=== PATIENT | male | born 1955 | race Caucasian/White ===

== ENCOUNTER 2023-10-31 12:03 | Inpatient (IN) | payer OTHER, SELFPAY ==
[2023-10-31] VITALS (12 sets, daily range): BP systolic 90–119; BP diastolic 58–76; BMI 24.2; BMI 22.9
--- NOTE | 2023-10-31 10:26 | ED.GENMED ---
History of Present Illness
General
Chief Complaint: Change in Mental Status
Source: patient and other (friends)
Time Seen by Provider: 10/31/23 10:01
History of Present Illness
History of Present Illness:
68-year-old male with past medical history of hypothyroidism and asthma presenting to the emergency department for evaluation with friends who report that over the last few days patient seems to be increasingly confused, stumbling, slower speech
than normal and falling asleep randomly. Patient has been having issues with sleep and was reportedly prescribed temazepam and trazodone by primary care provider within the last 2 weeks which friends were concerned might be because of some of
patient's symptoms. Yesterday patient notes that he kept stumbling and was very confused, friends reporting that even this morning while in the waiting room patient was stating he was waving at a little girl but friends report he was looking at a
plant and also felt that he was trying to press motorized buttons on the wheelchair while he was being brought back into the ER room. Other than generalized weakness patient has no specific physical concerns at this time. He is unaware of any
fevers. Friends note that a couple nights ago they were at dinner with him and he fell asleep at the table which is very abnormal for him. No history of similar.
Past History
Past History
ED Past Medical History: Asthma, Hypothyroidism and Psychiatric
ED Past Surgical History: Tonsilectomy and Other
Social History
Tobacco: Non-smoker
Alcohol: None
Drug: None
Personal: Single
Living: alone
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
Review of Systems
Review of Systems
All Other Systems: ROS reviewed and negative except as documented in HPI and ROS
Phy Exam
Physical Exam
Physical Exam:
GENERAL: Alert , in no apparent distress, slow to respond to questions but does answer appropriately
EYE: clear conjunctiva b/l
HEAD: NCAT
ENT: o/p clr, mmm.
CARDIAC: Regular rate and rhythm, no murmur .
LUNGS: Clear breath sounds bilaterally, no acute respiratory distress, no wheezes/rales/rhonchi
ABDOMEN: Soft, without focal tenderness, no r/g, no cvat
NEUROLOGICAL: Alert and oriented
SKIN: Warm and dry, skin intact.
MUSCULOSKELETAL: well perfused.
PSYCH: Normal and appropriate interaction.
Scores
Heart Failure Risk
Heart Failure Risk Score: Not Applicable
Heart Score for Chest Pain Patients
STEMI patient?: Not applicable
Withdrawal Assessment of Alcohol
Withdrawal Assessment Completed?: Not applicable
Course
Orders/Labs/Results
Orders:
Orders
10/31/23 10:24
Urinalysis Reflex To Culture Urgent
10/31/23 10:25
Electrocardiogram (*1) Urgent
Reason for Study: Fatigue / Weakness
CT Head W/o Iv Contrast Urgent
Comment:
Reason For Exam: change in mental status, falling
EKG- Treatment ONCE
10/31/23 10:30
Complete Blood Count/With Diff Urgent
Comprehensive Metabolic Panel Urgent
Magnesium Urgent
Serum Osmolality Urgent
TSH Urgent
10/31/23 11:15
Urine Sodium Urgent
10/31/23 11:16
Add On- LAB Urgent
Tests Added?: serum osmo
10/31/23 11:46
Admit/Transfer Patient As Directed
Co-Sign Provider:
Level of Care: Inpatient admission
Assign to:: IMU- Intermediate Care
Physician / Group: Ambika Galarza
Diagnosis: Hyponatremia
Reason for Hospitalization: hyponatremia
Expected length of stay greater than two midnights?: Yes
ELOS- Estimated Length of Stay in days: 3
I certify the patient meets the requirements for IP care: Yes
10/31/23 11:53
Code Status As Directed
Resuscitation Status: Full Code
10/31/23 11:55
Ot Eval And Treat Routine
Pt Eval And Treat Routine
Activity Level: As Tolerated
10/31/23 12:00
3% Sodium Chloride 250 ml [Sodium Chloride 3%] 250 ml IV ONCE
10/31/23 Dinner
Regular
Fluid Restriction: 1440 mL/day (48 oz)
Abnormal Lab Results
10/31/23
10:30
RBC 3.95 L 10^6/uL
(4.70-6.10)
Hgb 12.6 L g/dL
(13.0-18.0)
Hct 33.6 L %
(39.0-52.0)
MCH 31.9 H pg
(27.0-31.0)
MCHC 37.5 H g/dL
(33.0-37.0)
Absolute Eos (auto) 1.2 H 10^3/uL
(0-0.7)
Neutrophils % 31.4 L %
(42.2-75.2)
Monocytes % 10.7 H %
(1.7-9.3)
Eosinophils % 21.6 H %
(0-6)
Sodium 116 L* mmol/L
(135-145)
Chloride 80 L mmol/L
(98-107)
Serum Osmolality 239 L mOsm/kg
(275-300)
AST 76 H U/L
(17-59)
Total Protein 6.2 L g/dl
(6.3-8.2)
10/31/23 10:30
10/31/23 10:30
Vital Signs
Initial and Last Documented VS:
Initial Vital Signs
Temp Pulse Resp BP Pulse Ox
97.9 F 84 18 116/76 96
10/31/23 09:18 10/31/23 09:18 10/31/23 09:18 10/31/23 09:18 10/31/23 09:18
Last Documented Vital Signs
Temp Pulse Resp BP Pulse Ox
97.9 F 74 22 106/65 98
10/31/23 09:18 10/31/23 12:15 10/31/23 12:15 10/31/23 12:00 10/31/23 11:45
MDM/Problems Addressed
Differential Diagnosis Includes:
Medication interaction, hypothyroidism, UTI, CVA thought to be less likely given lack of risk factors and no focal neurologic deficits
MDM/Problems Addressed:
68-year-old male presenting to the emergency department for evaluation of forgetfulness, unsteadiness, slow speech and confusion. Friends concerned about patient's current disposition and are reporting that he is very slow to respond, falling
asleep at abnormal times. Recently prescribed temazepam and trazodone which patient has been taking nightly. I suspect this to be the main cause of patient's symptoms given symptoms started shortly after initiating these medications. Patient
without any symptoms to suggest infectious etiology but will check a urinalysis. Patient with known history of hypothyroidism and this could certainly be a cause of patient's presenting symptoms. Will check labs, urine, head CT and reassess
following.
*Pulse Oximetry
Patient hypoxic: no
*Critical Care Note
Total Time (30-74mins, 75-104mins- exclusive of procedures): 30
comment:
Critical care statement: A total of 30 minutes of critical care time was provided for this patient. This includes management of unstable vital signs, evaluation of the patient at bedside, reviewing the patient's pertinent medical records, discussion
with consultants, review of old EKGs and review of pertinent medical records. This time with separate from time utilized to perform the aforementioned documented procedures
Data Reviewed
Review of Other/Old Records Reveals: Records
Patient Management
Discussion with other providers: Hospitalist and Consumer Services Consultant
Escalation/DeEscalation of care consider admission/obs:
Patients labs reveal a Na+ of 116. Urine sodium and serum osmolality added on to labs. Case was discussed with hospitalist who accepts for admission. Nephrology also notified who would like patient started on 3%NaCl at 25mL/hour with a 250mL bag. Q4
Na+ checks. Patient and friends updated on findings. Patient remains hemodynamically stable. No seizure like activity.
ED Attending Note
-
Portions of this chart may have been created with voice recognition software.� Occasional wrong word or��sound alike� substitutions may have occurred due to the inherent limitations of voice recognition software.
Discharge Plan
Departure
Patient Disposition: Admit
Date of Disposition: 10/31/23
Time of Disposition: 11:19
Presentation/result/management discussed w/ accepting MD/DO: Hospitalist
Discharge Problem:
Acute hyponatremia
Interventions
Interventions:
*Risk Screen - Suicide Last Done: 10/31/23 10:27
*General Assessment Last Done: 10/31/23 09:18
*Neglect/Abuse Screening Last Done: 10/31/23 10:27
ED- Fall Risk Assessment Last Done: 10/31/23 10:27
*ED COVID-19 Vaccine History Last Done: 10/31/23 10:27
ED- Neurological Assessment Last Done: 10/31/23 10:27
ED- Cardiac Assessment Last Done: 10/31/23 10:27
[2023-10-31 10:59] LABS: % Basophils 0.4 % (0-2); % Eosinophils 21.6 % (0-6); % Immature Granulocytes 0.2 % (0-0.5); % Lymphocytes 35.7 % (20.5-51.1); % Monocytes 10.7 % (1.7-9.3); % Neutrophils 31.4 % (42.2-75.2); Absolute Eosinophils 1.2 10^3/uL (0-0.7); Absolute Lymphocytes 1.9 10^3/uL (1.2-3.4); Absolute Monocytes 0.6 10^3/uL (0.1-0.6); Absolute Neutrophils 1.7 10^3/uL (1.4-6.5); Hematocrit 33.6 % (39.0-52.0); Hemoglobin 12.6 g/dL (13.0-18.0); Mean Corp Hgb Conc. 37.5 g/dL (33.0-37.0); Mean Corpuscular Hgb 31.9 pg (27.0-31.0); Mean Corpuscular Volume 85.1 fL (80.0-94.0); Mean Platelet Volume 9.2 fL (7.4-10.4); Nucleated Red Blood Cells % 0 % (-); Platelet Count 253 10^3/uL (130-400); Red Blood Cell Count 3.95 10^6/uL (4.70-6.10); Red Cell Dist. Width 12.4 % (11.5-14.5); White Blood Cell Count 5.3 10^3/uL (4.8-10.8)
[2023-10-31 11:15] LABS: ALT (SGPT) 44 U/L (0-50); AST (SGOT) 76 U/L (17-59); Alkaline Phosphatase 56 U/L (38-126); Blood Urea Nitrogen 11 mg/dl (9-20); Calcium 8.7 mg/dl (8.4-10.2); Carbon Dioxide 25 mmol/L (22-30); Chloride 80 mmol/L (98-107); Estimated Creatinine Clearance 78 ml/min; Glucose 88 mg/dl (70-99); Magnesium 1.8 mg/dl (1.6-2.3); Potassium 4.7 mmol/L (3.5-5.1); Sodium 116 mmol/L (135-145); Total Bilirubin 0.6 mg/dl (0.2-1.3); Total Protein 6.2 g/dl (6.3-8.2); eGFR > 60.00
--- NOTE | 2023-10-31 11:25 | HPS.HSE ---
Addendum entered and electronically signed by Ambika Galarza MD 10/31/23 12:21:
HPI: 68-year-old male with past medical history of hypothyroidism, asthma; p/w lethargy, weakness and confusion.
A/P:
# Acute metabolic encephalopathy/symptomatic hyponatremia, unclear acute vs acute on chronic
Euvolemic likely SIADH (may be drug induced, ?does this patient have recent CAP/lung involvement given he is on Augmentin and steroid taper)
Check CXR
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
follow urine studies
Follow TSH, check random cortisol level
Nephrology consult.
Ok for diet (if awake enough, Fluid restriction to [address] head ordered in ED, follow up report
# ?recent CAP
noted Augmentin and steroid taper from prior to admission
check CXR
Hold both Abx and steroid, no clinical evidence of CAP currently
# Hypothyroidism
Follow TSH,
Continue home medication
# Asthma
Continue home medication as needed
# insomnia
was recently started with trazodone, hold
Hold temazepam with current confusion
monitor MS
DVT�sequential compression devices
Full code
Original Note:
Family Physician
-
Family Physician: MICHAEL Paiz
Chief Complaint
-
Fatigue
History of Present Illness
Patient is a 68-year-old male with past medical history of hypothyroidism, asthma who has been significantly fatigued, confused and clumsy in the last 2 days. He states that he has been tripping over items at home, thought his father and sister
were with him last night when they were not and is forgetting where items are. His friends state that he has been falling asleep in conversation, which is unlike him. He reports no headaches, nausea, vomiting, chest pain, shortness of breath,
abdominal pain or numbness and tingling. He does state he has dizziness and fatigue.
Medical History
Past Medical History
Past Medical History: Reports Asthma, Hypercholesterolemia, Hypothyroidism and Psychiatric
Additional Past Medical History:
obesity, prediabetes, tinnitus, cataracts
Past Surgical History: Reports Other (hernia)
Social History
Tobacco: Non-smoker
Alcohol: None
Drug: None
Personal: Single
Living: Alone
Employment: Employed
Family History
Family History: Cancer
Allergies / Home Medications
Allergies reflects when Allergies were last updated in [facility].
Home Medications with original date entered in [facility]
Allergy/Medication List:
Iodine, polyethylene glycol, polysorbate 80, shellfish, tetanus vaccine/toxoid
Review of Systems
-
History Source: Patient
A 12 point ROS was completed and negative except as noted: Yes
Constitutional: Reports Fatigue and Sleep Disturbance
EENT: Reports No Symptoms
Respiratory: Reports No Symptoms
Cardiac: Reports No Symptoms
Abdomen/GI: Reports No Symptoms
: Reports No Symptoms
Musculoskeletal: Reports No Symptoms
Skin: Reports No Symptoms
Neurological: Reports Dizzy and Weakness
Hematologic/Lymphatic: Reports No Symptoms
Psych: Reports No Symptoms
Physical Exam
Vital Signs
Vital Signs
Temp Pulse Resp BP Pulse Ox
97.9 F 74 12 105/65 100
10/31/23 09:18 10/31/23 10:45 10/31/23 10:45 10/31/23 10:27 10/31/23 10:31
Physical Exam
General: Well Developed, No Apparent Distress, Comfortable, Conversant and Other (Somnolent)
HEENT: NormoCephalic and Anicteric
Respiratory: Clear
Cardiac: S1/S2 and Regular Rhythm
GI: Soft, Non Tender and Non Distended
Musculoskeletal: No Clubbing, No Cyanosis and No Edema
Skin: Warm and Dry
Psych: Calm and Other (Somnolent)
Laboratory Results
-
10/31/23 10:30
10/31/23 10:30
Laboratory Results
Total Bilirubin 0.6 mg/dl (0.2-1.3) 10/31/23 10:30
AST 76 U/L (17-59) H 10/31/23 10:30
ALT 44 U/L (0-50) 10/31/23 10:30
Alkaline Phosphatase 56 U/L (38-126) 10/31/23 10:30
Data Reviewed
-
Lab Data: Labs Reviewed by me and Discussed with Physician
Old Records: Reviewed
Impression/Plan
-
IMPRESSION: Patient is a 68-year-old male with past medical history of hypothyroidism and asthma presenting to [facility] with confusion, fatigue and hyponatremia.
PLAN:
Hyponatremia
-Likely secondary to antidepressant/antipsychotic medication
�UA pending. Nighat, UOsm, UCr pending
-TSH pending. Random cortisol pending.
� Nephrology consulted. Input appreciated
� Fluid restriction to 1400 mL. Regular diet.
Hypothyroidism
�Continue home medication
Asthma
-Continue home medication as needed
Psychiatric history-sleeplessness
� Hold temazepam and trazodone in the setting of hyponatremia
� Continue to monitor
DVT�sequential compression devices
Full code
[2023-10-31] MEDS: SODIUM CHLORIDE 3% 250 IV (11:40)
[2023-10-31 11:57] LABS: Osmolality Serum 239 mOsm/kg (275-300)
--- NOTE | 2023-10-31 12:36 | W.CON.NEPH ---
Consultation
-
Date/Time Consultation Requested: 10/31/23 1118
Date/Time Consultation Performed: 10/31/23 1200
Requesting Provider: Geovanni Coyne
Performing Provider: Ritu Pimentel
Reason for Consultation: Hyponatremia
Medical History
-
Chief Complaint: falls, weakness and lethargy
History of Present Illness:
68-year-old male with past medical history of hypothyroidism on Levothyroxine, asthma with out flare ups who was asked to come to ER by his friends for Gen weakness, falls, confusion and lethargic, reportedly symptoms present for 1week and worse in
last 2days. He reports of eating well and drinking liquids. No ETOH use. He was given Temazepam and Trazodone for insomnia by his PCP 2weeks ago. He reports taking NSAIDs occasionally, noted Meloxicam on med list too for his intermittent HAs. No
n/v. No CP or SOB. Denies dizziness but c/o of falls. NOtes his med list shows Augmentin and prednisone. Pt can only provide limited history due to letharginess. CT head is normal.
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 In Er labs noted sodium at 116, he denies prior h/o hyponatremia.
Past Medical History
Hypothyroidism
Asthma
Insomnia
Pre DM
HLD
Tinnitus
cataracts
Past Surgical History: Other (hernia)
Social History
Tobacco: Non-Smoker
Alcohol: None
Drug: None
Personal: Single
Living: Alone
Family History
Family History: Not Pertinent
Allergies / Home Medications
Allergy/AdvReac Type Severity Reaction Status Date / Time
Iodinated Contrast Media Allergy swelling;hi Verified 10/31/23 09:25
ves
polyethylene glycol Allergy swelling;bad Verified 10/31/23 09:25
rash
polysorbate 80 Allergy swelling;bad Verified 10/31/23 09:25
rash
shellfish derived Allergy swelling;bad Verified 10/31/23 09:25
rash
Tetanus Vaccines and Toxoid Allergy swelling;bad Verified 10/31/23 09:25
rash
�Medication �Instructions �Recorded �Confirmed �Type
albuterol sulfate 90 mcg/actuation 2 puff inhalation R Q6HPRN PRN 03/21/22 10/31/23 History
aerosol inhaler (Ventolin HFA) asthma
amoxicillin 875 mg-potassium 1 tab PO BID 10/31/23 10/31/23 History
clavulanate 125 mg tablet
levothyroxine 100 mcg tablet 100 mcg PO DAILY 10/31/23 10/31/23 History
(Synthroid)
meloxicam 15 mg tablet 15 mg PO DAILYPRN PRN mild pain 10/31/23 10/31/23 History
prednisone 10 mg tablets in a dose 0 mg PO PER PKG DIR 10/31/23 10/31/23 History
pack
temazepam 15 mg capsule 15 mg PO HS 10/31/23 10/31/23 History
therapeutic multivitamin 1 tab PO DAILY 10/31/23 10/31/23 History
trazodone 100 mg tablet 100 mg PO HSPRN PRN sleep 10/31/23 10/31/23 History
Review of Systems
-
All other systems: Negative unless noted
Physical Exam
Vital Signs
Vital Signs
Temp Pulse Resp BP Pulse Ox
97.9 F 74 22 106/65 98
10/31/23 09:18 10/31/23 12:15 10/31/23 12:15 10/31/23 12:00 10/31/23 11:45
Lab Results
WBC 5.3 10^3/uL (4.8-10.8) 10/31/23 10:30
RBC 3.95 10^6/uL (4.70-6.10) L 10/31/23 10:30
Hgb 12.6 g/dL (13.0-18.0) L 10/31/23 10:30
Hct 33.6 % (39.0-52.0) L 10/31/23 10:30
Plt Count 253 10^3/uL (130-400) 10/31/23 10:30
Sodium 116 mmol/L (135-145) L* 10/31/23 10:30
Potassium 4.7 mmol/L (3.5-5.1) 10/31/23 10:30
Chloride 80 mmol/L (98-107) L 10/31/23 10:30
Carbon Dioxide 25 mmol/L (22-30) 10/31/23 10:30
BUN 11 mg/dl (9-20) 10/31/23 10:30
Creatinine 0.8 mg/dL (0.7-1.3) 10/31/23 10:30
eGFR > 60.00 10/31/23 10:30
Glucose 88 mg/dl (70-99) 10/31/23 10:30
Calcium 8.7 mg/dl (8.4-10.2) 10/31/23 10:30
Albumin 4.0 g/dl (3.5-5.0) 10/31/23 10:30
Physical Exam
General: Awake, Oriented, AOx3 and No Distress
HEENT: EOMI, Anicteric, Conjunctivae Clear, Neck Supple and No JVD
Respiratory: Clear, Normal Excursion and Nonlabored Respirations
Cardiac: S1/S2 and Regular Rate/Rhythm
Breast: Deferred by me
Abdomen: Soft, Nontender and Nondistended
Musculoskeletal: No Cyanosis and No Edema
Skin: No Rash and Normal Turgor
Neuro: Nonfocal/Grossly Intact and Other (sleeps during conversation )
Psych: Appropriate
Data Reviewed
-
Labs: Labs Reviewed by me and Discussed with Patient
Assessment/Plan
-
IMP:
Acute metabolic encephalopathy
possible symptomatic hyponatremia
?recent CAP
Hypothyroidism
Asthma
Insomnia
Anemia
Eosinophilia
PLan:
A/w fall, gen weakness and lethargy
likely symptomatic hyponatremia na at 116
no previous h/o hyponatremia per pt
check U oosmo, u na
suspect high ADH state ?lung process+NSAIDs use
check TSH and cortisol(note pt was on prednisone)
agree check CXR, specially noted significant eosinophilia
goal of correction 6-8meq/day , sodium 122 by am
3% started at 25cc/hr, check q4h sodium
avoid NSAIDs
BP soft , monitor for now
anemia-check U PCR, fe panel
d/w pt
[2023-10-31 14:18] LABS: Urine Albumin Negative (Neg - Trace); Urine Bilirubin Negative (Negative); Urine Character Clear (Clear); Urine Color Yellow; Urine Glucose Negative (Negative); Urine Ketone 2+ (Negative); Urine Leukocyte Negative (Negative); Urine Nitrite Negative (Negative); Urine Occult Blood Negative (Negative); Urine Urobilinogen Negative (Neg - 1+); Urine pH 6.5 (5.0-9.0)
[2023-10-31 14:40] LABS: Sodium 115 mmol/L (135-145)
[2023-10-31 14:55] LABS: Osmolality Urine 319 mOsm/kg (300-900)
[2023-10-31 15:08] LABS: Urine Protein 12 mg/dl (0-12); Urine Sodium 31 mmol/L (30-90)
[2023-10-31 15:30] LABS: Cortisol, Random 3.3 ug/dl
--- NOTE | 2023-10-31 15:56 | PTCARENOTE ---
Rec'd pt from ED. Pt is intermittently confused, very talkative but requires frequent reminders about his condition etc. Medsitter in place due to fall risk. BP low 100s systolic. Pt unable to void on arrival to IMU. Bladder scan 800ml. st. cath per
order. Labs and urine sent. Dr. Ely updated on critcal Na 115. 2 hour after straight cath pt felt urge to void. he voided 350ml very clear urine. RN updated Dr. Parks. Brother at bedside. Pt is eating dinner. Bed alarm in place
[2023-10-31 16:46] LABS: TSH 9.65 uIU/ml (0.47-4.68)
--- NOTE | 2023-10-31 18:15 | PTCARENOTE ---
mentation improving, with some periodic confusion
[2023-10-31 18:30] LABS: Sodium 119 mmol/L (135-145)
--- NOTE | 2023-10-31 18:35 | PTCARENOTE ---
PT O2 sat dipped to 81% while asleep. placed on 2L NC. Brother describes pt as frequently falling asleep, possibly having narcolepsy.
--- NOTE | 2023-10-31 19:21 | PTCARENOTE ---
Recd TT from Dr Ely to turn off 3% NS if pt's Na reaches 120 or higher with next lab draw
[2023-10-31 22:20] LABS: Sodium 122 mmol/L (135-145)
[2023-10-31] MEDS: D5W 1000 IV (23:15)
--- NOTE | 2023-10-31 23:15 | W.PN.UPDATE ---
Update Note
Progress Note Update
Recommended by rib knitter gas station clerk to start D5% 50ml/hr, and recheck sodium in 2 hrs. Goal of sodium level to be 120-121.
Sodium level trended up from 122-125 will increase D5% rate to 100ml/hr as recommended and will recheck sodium level this am.
[2023-11-01] VITALS (17 sets, daily range): BP systolic 89–126; BP diastolic 55–105; BMI 22.3
[2023-11-01 02:25] LABS: Sodium 125 mmol/L (135-145)
--- NOTE | 2023-11-01 03:03 | PTCARENOTE ---
Pt is oriented, but forgetful. Pt frequently inquires about his condition and what led to his hospital stay. Na increased to 125 at most recent. This RN increased rate of D5W from 50 to 100ml/hr per CHIEF LEGAL OFFICER orders. Pt continues with frequent urination
and urgency. I&O closely monitored and documented. Call thomas within reach.
[2023-11-01] MEDS: SYNTHROID 100 MCG PO (06:15)
[2023-11-01 06:46] LABS: ALT (SGPT) 47 U/L (0-50); AST (SGOT) 74 U/L (17-59); Albumin 3.6 g/dl (3.5-5.0); Alkaline Phosphatase 52 U/L (38-126); Blood Urea Nitrogen 7 mg/dl (9-20); Calcium 8.7 mg/dl (8.4-10.2); Carbon Dioxide 23 mmol/L (22-30); Chloride 92 mmol/L (98-107); Estimated Creatinine Clearance 106 ml/min; Glucose 114 mg/dl (70-99); Iron 67 ug/dl (49-181); Potassium 4.6 mmol/L (3.5-5.1); Sodium 123 mmol/L (135-145); Total Bilirubin 0.6 mg/dl (0.2-1.3); Total Protein 5.8 g/dl (6.3-8.2); eGFR > 60.00
[2023-11-01 06:55] LABS: Percent Saturation 23 % (20-50); Total Iron Binding Capacity 287 ug/dl (261-462)
[2023-11-01 07:26] LABS: Hematocrit 34.7 % (39.0-52.0); Mean Corp Hgb Conc. 37.5 g/dL (33.0-37.0); Mean Corpuscular Hgb 31.7 pg (27.0-31.0); Mean Corpuscular Volume 84.6 fL (80.0-94.0); Mean Platelet Volume 9.1 fL (7.4-10.4); Platelet Count 262 10^3/uL (130-400); Red Cell Dist. Width 12.8 % (11.5-14.5); White Blood Cell Count 3.9 10^3/uL (4.8-10.8)
--- NOTE | 2023-11-01 07:44 | W.PN.HOSP.TC ---
Addendum entered and electronically signed by Ambika Galarza MD 11/01/23 11:23:
HPI: 68-year-old male with past medical history of hypothyroidism, asthma; p/w lethargy, weakness and confusion.
A/P:
# Acute metabolic encephalopathy/symptomatic hyponatremia, unclear acute vs acute on chronic
Euvolemic 2/2 SIADH (may be drug induced)
Sodium level 116 on admission, s/p 3% NSS, now on D5W due to overcorrection
cont monitor sodium level Q4H for now
Nephrology on board
CXR noted possible left upper lobe nodule vs costochondral calcification, repeat CXR in 4 weeks with PCP
PCT negative hence r/o bacterial pneumonia
Stop ENVIRONMENTAL PROFESSIONAL trazodone (can cause SIADH) and NSAID (may exacerbate hyponatremia)
TSH 9.65, FT4 0.73, suggestive of hypothyroidism, for now cont ENVIRONMENTAL PROFESSIONAL Synthroid at 100 mcg and consider increasing dose when sodium level corrected
Random cortisol level low at 3, not a true reflection since pt may have been on prednisone ENVIRONMENTAL PROFESSIONAL, can consider repeat cortisol level outpt when off prednisone
Cont Fluid restriction to [address] head ordered in ED is WNL
# recent sinusitis on Augmentin and ?steroid taper
Per sister, pt has completed Abx course.
Hold further prednisone
# Hypothyroidism
TSH 9.65, FT4 0.73, suggestive of hypothyroidism, for now cont ENVIRONMENTAL PROFESSIONAL Synthroid at 100 mcg and consider increasing dose when sodium level corrected
# Asthma
Continue home medication as needed
# insomnia
Recently started trazodone, stop going forward
Stop ENVIRONMENTAL PROFESSIONAL temazepam
monitor MS, improved
DVT� sequential compression devices
Full code
DW sister on the phone
Original Note:
Today's Communication/Plan
-
.
Assessment / Plan
Assessment / Plan
IMPRESSION: Patient is a 68-year-old male with past medical history of hypothyroidism and asthma presenting to [facility] with confusion, fatigue and hyponatremia.
PLAN:
Acute metabolic encephalopathy/symptomatic hyponatremia, unclear acute vs acute on chronic
- Euvolemic, secondary to SIADH
-Likely secondary to antidepressant/antipsychotic medication
�UA negative. Nighat 31, UOsm 319, UCr 76
-TSH 9.65. Random cortisol 3.3 and 2.6 this AM. Continue to monitor
� Nephrology consulted. Input appreciated. Pt given 3% Na in ED.
� Fluid restriction to 1400 mL. Regular diet.
- Na at 123 10/31 AM, D5 at 150 ml/hr
Hypothyroidism
�Continue home medication
- TSH 9.65 at time of admission
- Can reassess and increase Synthroid to 125 mg once Na corrected
Potential CAP(?)
- unclear based on poor historian/ drug list
- CXR report below from 10/30
- procalcitonin ordered. Pending results
Urinary Retention
- patient retaining 542 mL per bladder scan
- attempt to void with standing, otherwise nurse will straight cath
- continue to monitor
Low Neutrophil Count
- patient's ANC at 0.9 on 10/31
- continue to monitor
Asthma
-Continue home medication as needed
- Patient saturating 98% on RA, O2 stopped
Psychiatric history-sleeplessness
� Hold temazepam and trazodone in the setting of hyponatremia
� Continue to monitor
DVT�sequential compression devices
Full code
----
CT HEAD 10/30:
IMPRESSION: Normal
CXR 10/30:
IMPRESSION:
Left upper lobe nodular opacity may represent pneumonia in the proper clinical context versus underlying pulmonary nodule. If there is no concern for an infectious/inflammatory process, CT of the chest may be performed on an outpatient basis for
further evaluation.
Anticipated Discharge: > 48 hours
Subjective/Interval History
-
Date of Service: November 01, 2023
Patient reports feeling well today. He states he slept through the night well. No new headaches, nausea, vomiting, diarrhea, chest pain, shortness of breath or numbness and tingling in extremities. He states he is no longer hallucinating.
Objective Data
-
Labs:
Laboratory Results
10/31/23 11/01/23 11/01/23
21:57 01:58 06:09
WBC 3.9 L
Hgb 13.0
Hct 34.7 L
Plt Count 262
Sodium 122 L 125 L 123 L
Potassium 4.6
Chloride 92 L
Carbon Dioxide 23
BUN 7 L
Creatinine 0.6 L
Glucose 114 H
Calcium 8.7
Total Bilirubin 0.6
AST 74 H
ALT 47
Alkaline Phosphatase 52
11/01/23
09:30
WBC
Hgb
Hct
Plt Count
Sodium Pending
Potassium
Chloride
Carbon Dioxide
BUN
Creatinine
Glucose
Calcium
Total Bilirubin
AST
ALT
Alkaline Phosphatase
Vital Signs:
Vital Signs
Temp Pulse Resp BP Pulse Ox
97.5 F 74 16 101/62 98
11/01/23 03:44 11/01/23 06:09 11/01/23 06:09 11/01/23 06:09 11/01/23 06:09
I&O
10/31/23 11/01/23 11/02/23
06:59 06:59 06:59
Intake Total 120 / 120
Output Total 3300 / 3300
Balance -3180 / -3180
Review of Systems
-
History Source: Patient
All other systems: Reviewed and negative
Constitutional: Reports Fatigue
Physical Exam
-
General: Well Developed, Well Nourished and No Apparent Distress
HEENT: Normocephalic and Atraumatic
Respiratory: Clear to Auscultation and Non Labored Respirations
GI: Soft, Nontender and Nondistended
Musculoskeletal: No Clubbing, No Cyanosis and No Edema
Skin: Warm and Dry
Neuro: AO x 3
Psych: Calm
Data Reviewed
-
Diagnostic Radiology: Report Reviewed by me and Discussed with Physician
Labs: Labs Reviewed by me and Discussed with Physician
Old Records: Reviewed
[2023-11-01 08:19] LABS: % Eosinophils 25.2 % (0-6); % Immature Granulocytes 0.3 % (0-0.5); % Monocytes 8.4 % (1.7-9.3); % Neutrophils 23.1 % (42.2-75.2); Absolute Lymphocytes 1.7 10^3/uL (1.2-3.4); Absolute Monocytes 0.3 10^3/uL (0.1-0.6); Absolute Neutrophils 0.9 10^3/uL (1.4-6.5); Nucleated Red Blood Cells % 0 % (-)
[2023-11-01 08:48] LABS: Free T4 0.73 ng/dl (0.78-2.19)
[2023-11-01 09:02] LABS: Cortisol, Random 2.6 ug/dl
[2023-11-01] MEDS: D5W 1000 IV (09:34)
[2023-11-01 10:19] LABS: Osmolality Urine 213 mOsm/kg (300-900)
[2023-11-01 10:44] LABS: Sodium 125 mmol/L (135-145)
[2023-11-01 10:47] LABS: Blood Urea Nitrogen 6 mg/dl (9-20); Calcium 9.1 mg/dl (8.4-10.2); Carbon Dioxide 25 mmol/L (22-30); Chloride 90 mmol/L (98-107); Estimated Creatinine Clearance 91 ml/min; Glucose 105 mg/dl (70-99); Potassium 5.4 mmol/L (3.5-5.1); Sodium 125 mmol/L (135-145); eGFR > 60.00
[2023-11-01 11:02] LABS: Procalcitonin 0.05 ng/ml (0.0-0.25)
--- NOTE | 2023-11-01 11:50 | CM ---
Patient seen at bedside working with therapy. PT/OT recommending SNF placement due to confusion and need for Min a assistance at this time. Patient son also present and he indicated that Patient has been living alone for the last 40 years. Patient
son lives in [place] and the daughter is in [place]. Patient son expressed intrest in SNF in [place]. CM reviewed Medicare.gov and PAC data. Patient son indicated that he wanted to talk to his father and sister about options. Patient PCP Dr. Lion and he uses
the [facility] in [place] for pharmacy needs. Patient son concurred that he understood current recommendations from therapy were 01/10 supervision with VN vs SNF at this time. Patient son indicated that he would communicate with CM with plan once he
discussed options with sister and father. CM will continue to follow for discharge planning needs.
Plan; SNF vs home with VN/01/10 care.
[2023-11-01 15:31] LABS: Sodium 124 mmol/L (135-145)
--- NOTE | 2023-11-01 16:13 | W.PN.NEPH.PH ---
Today's Communication / Plan
-
- f/u sodium trend
- off D5W
Assessment/Plan
-
IMP:
Acute metabolic encephalopathy
possible symptomatic hyponatremia
?recent CAP
Hypothyroidism
Asthma
Insomnia
Anemia
Eosinophilia
PLan:
A/w fall, gen weakness and lethargy
likely symptomatic hyponatremia na at 116
no previous h/o hyponatremia per pt
urine osm and urine Na --> indicative of hypovolemic hypoantremia + excessive ADH state
rapid correction with 3%. initiated on D5W by Dr. Parks overnight as patient was correcting too quickly. he has stabilized at 124 now. will stop D5W now as he corrected 8 pts
hold off on further fluids and monitor his response
cortisol is low but likely in the setting of prednisone usage
TSH elevated and T4 low --> okay to uptitrate levothyroxine
could consider pulm c/s for eosinophilia + CXR findings --> ABPA? pulm eosinophilia? could also explain some of hyponatremia and excess ADH
avoid NSAIDs
BP soft , monitor for now
anemia-UPCR wnl, check fe panel
d/w pt
-
-
Date of Service: November 01, 2023
CC / HPI / ROS
-
Chief Complaint:
hyponatremia
History of Present Illness:
Na 116 --> 124 over >24 hours
hold further fluids
Review of Systems:
appears slightly confused
no complaints
Labs
-
Labs:
WBC 3.9 10^3/uL (4.8-10.8) L 11/01/23 06:09
RBC 4.10 10^6/uL (4.70-6.10) L 11/01/23 06:09
Hgb 13.0 g/dL (13.0-18.0) 11/01/23 06:09
Hct 34.7 % (39.0-52.0) L 11/01/23 06:09
Plt Count 262 10^3/uL (130-400) 11/01/23 06:09
eGFR > 60.00 11/01/23 10:18
Albumin 3.6 g/dl (3.5-5.0) 11/01/23 06:09
Physical Exam
-
Vital Signs:
Vital Signs
Temp Pulse Resp BP Pulse Ox
97.8 F 85 15 104/60 98
11/01/23 15:16 11/01/23 12:46 11/01/23 12:46 11/01/23 12:46 11/01/23 14:03
Cardiovascular:: Regular rate and rhythm
Respiratory:: Bilateral: Coarse
Lung Excursion:: Normal
Abdomen:: Nontender and Soft
Bowel Sounds:: Normal
Extremity Edema:: None: Bilateral:
Lau Catheter: No
[2023-11-01] MEDS: D5W IV (18:16)
--- NOTE | 2023-11-01 19:21 | PTCARENOTE ---
Patient ox 3 but loses train of thought and goes off on tangents. He denies hallucinations today. Pt OOB to chair, does c/chao slight vertigo that resolves once sitting. He had some difficulty voiding lying down but with 1 assist and standing he is
able to void. Discharge planning: pt lives alone and will need to see if confusion resolves with normalizing of Sodium. This RN unable to obtain 1800 blood draw and night RN attempting to obtain.
--- NOTE | 2023-11-01 20:00 | PTCARENOTE ---
Received pt from previous shift. Assessment performed, see flowsheets. Labs drawn. Pt is awake and talking to his brother and a friend at bedside. Pt having appropriate conversation but seems fixated on thyroid levels. Pt's brother reoriented pt to
his current medical situation- hyponatremia. No acute issues or complaints at this time. Medsitter at bedside. Will continue to monitor.
[2023-11-01 20:06] LABS: Blood Urea Nitrogen 10 mg/dl (9-20); Calcium 9.2 mg/dl (8.4-10.2); Carbon Dioxide 26 mmol/L (22-30); Chloride 88 mmol/L (98-107); Estimated Creatinine Clearance 106 ml/min; Glucose 93 mg/dl (70-99); Potassium 5.1 mmol/L (3.5-5.1); Sodium 122 mmol/L (135-145); eGFR > 60.00
[2023-11-02] VITALS (10 sets, daily range): BP systolic 88–120; BP diastolic 61–81
[2023-11-02 00:21] LABS: Blood Urea Nitrogen 11 mg/dl (9-20); Calcium 9.3 mg/dl (8.4-10.2); Carbon Dioxide 23 mmol/L (22-30); Chloride 87 mmol/L (98-107); Estimated Creatinine Clearance 106 ml/min; Glucose 87 mg/dl (70-99); Potassium 4.9 mmol/L (3.5-5.1); Sodium 120 mmol/L (135-145); eGFR > 60.00
[2023-11-02 04:30] LABS: % Basophils 0.6 % (0-2); % Immature Granulocytes 0.4 % (0-0.5); % Monocytes 7.8 % (1.7-9.3); % Neutrophils 23.2 % (42.2-75.2); Absolute Eosinophils 1.1 10^3/uL (0-0.7); Absolute Lymphocytes 2.3 10^3/uL (1.2-3.4); Absolute Monocytes 0.4 10^3/uL (0.1-0.6); Absolute Neutrophils 1.2 10^3/uL (1.4-6.5); Hematocrit 37.6 % (39.0-52.0); Mean Corp Hgb Conc. 37.2 g/dL (33.0-37.0); Mean Corpuscular Hgb 31.6 pg (27.0-31.0); Mean Corpuscular Volume 84.9 fL (80.0-94.0); Mean Platelet Volume 9.2 fL (7.4-10.4); Nucleated Red Blood Cells % 0 % (-); Platelet Count 292 10^3/uL (130-400); Red Blood Cell Count 4.43 10^6/uL (4.70-6.10); Red Cell Dist. Width 12.6 % (11.5-14.5)
[2023-11-02 04:35] LABS: ALT (SGPT) 50 U/L (0-50); AST (SGOT) 58 U/L (17-59); Albumin 3.9 g/dl (3.5-5.0); Alkaline Phosphatase 59 U/L (38-126); Blood Urea Nitrogen 10 mg/dl (9-20); Calcium 9.1 mg/dl (8.4-10.2); Carbon Dioxide 23 mmol/L (22-30); Chloride 89 mmol/L (98-107); Estimated Creatinine Clearance 106 ml/min; Glucose 87 mg/dl (70-99); Sodium 121 mmol/L (135-145); Total Bilirubin 0.6 mg/dl (0.2-1.3); Total Protein 6.3 g/dl (6.3-8.2); eGFR > 60.00
[2023-11-02] MEDS: SYNTHROID 100 MCG PO (06:28)
--- NOTE | 2023-11-02 08:14 | W.PN.HOSP.TC ---
Today's Communication/Plan
-
see A/P
Assessment / Plan
Assessment / Plan
HPI: 68-year-old male with past medical history of hypothyroidism, asthma; p/w lethargy, weakness and confusion.
A/P:
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
Sodium level 116 on admission, s/p 3% NSS, then D5W due to overcorrection, sodium level today at 121
cont monitor sodium level Q4H for now
Nephrology on board
CXR noted possible left upper lobe nodule vs costochondral calcification, informed pt to repeat CXR in 4 weeks with PCP
Procal negative hence r/o bacterial pneumonia
Stopped PARTY HOST/HOSTESS trazodone (can cause SIADH) and NSAID (may exacerbate hyponatremia)
TSH 9.65, FT4 0.73, suggestive of hypothyroidism, for now cont PARTY HOST/HOSTESS Synthroid at 100 mcg and consider increasing dose when sodium level corrected
Random cortisol level low at 3, not a true reflection since pt may have been on prednisone PARTY HOST/HOSTESS, can consider repeat cortisol level outpt with PCP when off prednisone
Cont Fluid restriction to [address] head ordered in ED is WNL
# recent sinusitis on Augmentin and ?steroid taper
Per sister, pt has completed Abx course.
Hold further prednisone
# Hypothyroidism
TSH 9.65, FT4 0.73, suggestive of hypothyroidism, for now cont PARTY HOST/HOSTESS Synthroid at 100 mcg and consider increasing dose when sodium level corrected
# Asthma
Continue home medication as needed
# insomnia
Recently started trazodone, stop going forward
Stop PARTY HOST/HOSTESS temazepam
monitor MS, improved
DVT� sequential compression devices
Full code
updated brother on the phone
Anticipated Discharge: 24 - 48 hours
Subjective/Interval History
-
Date of Service: November 02, 2023
Objective Data
-
Labs:
Laboratory Results
11/01/23 11/01/23 11/02/23
20:00 23:50 03:50
WBC 5.0
Hgb 14.0
Hct 37.6 L
Plt Count 292
Sodium Cancelled 120 L 121 L
Potassium 4.9 5.0
Chloride 87 L 89 L
Carbon Dioxide 23 23
BUN 11 10
Creatinine 0.6 L 0.6 L
Glucose 87 87
Calcium 9.3 9.1
Total Bilirubin 0.6
AST 58
ALT 50
Alkaline Phosphatase 59
11/02/23 11/02/23 11/02/23
08:00 12:00 16:00
WBC
Hgb
Hct
Plt Count
Sodium Pending Pending Pending
Potassium
Chloride
Carbon Dioxide
BUN
Creatinine
Glucose
Calcium
Total Bilirubin
AST
ALT
Alkaline Phosphatase
11/02/23
20:00
WBC
Hgb
Hct
Plt Count
Sodium Pending
Potassium
Chloride
Carbon Dioxide
BUN
Creatinine
Glucose
Calcium
Total Bilirubin
AST
ALT
Alkaline Phosphatase
Vital Signs:
Vital Signs
Temp Pulse Resp BP Pulse Ox
36.5 C 71 16 98/70 97
11/02/23 03:17 11/02/23 06:34 11/02/23 06:34 11/02/23 06:34 11/02/23 06:34
I&O
11/01/23 11/02/23 11/03/23
06:59 06:59 06:59
Intake Total 120 / 120 2525 / 2525
Output Total 3300 / 3300 2150 / 2150
Balance -3180 / -3180 375 / 375
Review of Systems
-
All other systems: Reviewed and negative
Physical Exam
-
General: Well Developed, Well Nourished, No Apparent Distress, Comfortable and Conversant
HEENT: Normocephalic, Atraumatic, Nose Appears Normal and Ears Appear Normal
Respiratory: Clear to Auscultation and Non Labored Respirations; Negative Accessory Resp Muscle Use
Cardiac: Regular Rhythm and S1/S2
GI: Soft, Nontender and Nondistended
Musculoskeletal: No Clubbing, No Cyanosis and No Edema
Skin: Warm and Dry
Neuro: Awake and Alert
Psych: Calm and Intact Judgement/Insight
Data Reviewed
-
CT Scan: Report Reviewed by me
Labs: Labs Reviewed by me
[2023-11-02 12:11] LABS: Sodium 121 mmol/L (135-145)
--- NOTE | 2023-11-02 14:03 | W.PN.NEPH.PH ---
Today's Communication / Plan
-
- 3%
Assessment/Plan
-
IMP:
Acute metabolic encephalopathy
possible symptomatic hyponatremia
?recent CAP
Hypothyroidism
Asthma
Insomnia
Anemia
Eosinophilia
PLan:
A/w fall, gen weakness and lethargy
likely symptomatic hyponatremia na at 116, continues to have mild confusion with Na at 121
no previous h/o hyponatremia per pt
urine osm and urine Na --> indicative of hypovolemic hypoantremia + excessive ADH state
rapid correction with 3%. initiated on D5W by Dr. Parks to correct overcorrection. now very stable. will give another small amount of HTS (15cc/hr)
goal Na of 128-130 by tomorrow AM
cortisol is low but likely in the setting of prednisone usage
TSH elevated and T4 low --> okay to uptitrate levothyroxine
could consider pulm c/s for eosinophilia + CXR findings --> ABPA? pulm eosinophilia? could also explain some of hyponatremia and excess ADH
avoid NSAIDs
BP soft , monitor for now
anemia-UPCR wnl, check fe panel
d/w pt
-
-
Date of Service: November 02, 2023
CC / HPI / ROS
-
Chief Complaint:
hyponatremia
History of Present Illness:
Na 116 --> 121 over >24 hours
hold further fluids
Review of Systems:
appears slightly confused
no complaints
Labs
-
Labs:
WBC 5.0 10^3/uL (4.8-10.8) 11/02/23 03:50
RBC 4.43 10^6/uL (4.70-6.10) L 11/02/23 03:50
Hgb 14.0 g/dL (13.0-18.0) 11/02/23 03:50
Hct 37.6 % (39.0-52.0) L 11/02/23 03:50
Plt Count 292 10^3/uL (130-400) 11/02/23 03:50
Potassium 5.0 mmol/L (3.5-5.1) 11/02/23 03:50
Chloride 89 mmol/L (98-107) L 11/02/23 03:50
Carbon Dioxide 23 mmol/L (22-30) 11/02/23 03:50
BUN 10 mg/dl (9-20) 11/02/23 03:50
Creatinine 0.6 mg/dL (0.7-1.3) L 11/02/23 03:50
eGFR > 60.00 11/02/23 03:50
Glucose 87 mg/dl (70-99) 11/02/23 03:50
Calcium 9.1 mg/dl (8.4-10.2) 11/02/23 03:50
Albumin 3.9 g/dl (3.5-5.0) 11/02/23 03:50
Physical Exam
-
Vital Signs:
Vital Signs
Temp Pulse Resp BP Pulse Ox
96.6 F L 57 14 109/61 99
11/02/23 11:50 11/02/23 10:24 11/02/23 08:00 11/02/23 10:24 11/02/23 10:24
Cardiovascular:: Regular rate and rhythm
Respiratory:: Bilateral: CTA
Lung Excursion:: Normal
Abdomen:: Nontender and Soft
Bowel Sounds:: Normal
Extremity Edema:: None: Bilateral:
Lau Catheter: No
[2023-11-02] MEDS: SODIUM CHLORIDE 3% 250 IV (15:11)
[2023-11-02 17:52] LABS: Sodium 118 mmol/L (135-145)
--- NOTE | 2023-11-02 17:54 | PTCARENOTE ---
Na resulted at 118. Dr. Galarza notified. 3% Saline infusing. Q4 Na checks continuing. No new orders.
--- NOTE | 2023-11-02 19:43 | PTCARENOTE ---
Assumed care of pt at shift change; Pt AAOx3, no complaints of pain. Pt is tangential, but reports he is feeling better and has a better understanding of why he is in the hospital today. Lungs sound clear, SpO2 97% on RA. Remainder of assessment as
documented. 3% NSS infusing at 15mL/hr per order. Pt updated on POC for the evening, including Q4H blood draws to check sodium levels. Pt without questions at this time, resting comfortably in bed conversing with family at the bedside.
[2023-11-02 21:27] LABS: Sodium 117 mmol/L (135-145)
[2023-11-03 01:52] LABS: Sodium 119 mmol/L (135-145)
[2023-11-03 06:23] LABS: % Basophils 0.7 % (0-2); % Eosinophils 23.8 % (0-6); % Immature Granulocytes 0.4 % (0-0.5); % Lymphocytes 49.5 % (20.5-51.1); % Monocytes 7.9 % (1.7-9.3); % Neutrophils 17.7 % (42.2-75.2); Absolute Eosinophils 1.3 10^3/uL (0-0.7); Absolute Lymphocytes 2.7 10^3/uL (1.2-3.4); Absolute Monocytes 0.4 10^3/uL (0.1-0.6); Hematocrit 33.9 % (39.0-52.0); Hemoglobin 12.7 g/dL (13.0-18.0); Mean Corp Hgb Conc. 37.5 g/dL (33.0-37.0); Mean Corpuscular Hgb 30.8 pg (27.0-31.0); Mean Corpuscular Volume 82.3 fL (80.0-94.0); Mean Platelet Volume 9.1 fL (7.4-10.4); Nucleated Red Blood Cells % 0 % (-); Platelet Count 334 10^3/uL (130-400); Red Blood Cell Count 4.12 10^6/uL (4.70-6.10); Red Cell Dist. Width 12.8 % (11.5-14.5); White Blood Cell Count 5.4 10^3/uL (4.8-10.8)
[2023-11-03] MEDS: SYNTHROID 100 MCG PO (06:36)
[2023-11-03 06:41] LABS: ALT (SGPT) 42 U/L (0-50); AST (SGOT) 42 U/L (17-59); Albumin 3.6 g/dl (3.5-5.0); Alkaline Phosphatase 58 U/L (38-126); Blood Urea Nitrogen 9 mg/dl (9-20); Calcium 8.8 mg/dl (8.4-10.2); Carbon Dioxide 21 mmol/L (22-30); Chloride 89 mmol/L (98-107); Estimated Creatinine Clearance 106 ml/min; Glucose 86 mg/dl (70-99); Potassium 4.7 mmol/L (3.5-5.1); Sodium 121 mmol/L (135-145); Total Bilirubin 0.6 mg/dl (0.2-1.3); Total Protein 5.8 g/dl (6.3-8.2); eGFR > 60.00
--- NOTE | 2023-11-03 08:12 | W.PN.HOSP.TC ---
Today's Communication/Plan
-
see A/P
Assessment / Plan
Assessment / Plan
HPI: 68-year-old male with past medical history of hypothyroidism, asthma; p/w lethargy, weakness and confusion.
A/P:
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
Sodium level 116 on admission, s/p 3% NSS, then D5W, then 3% NSS, latest sodium level at 121
cont monitor sodium level Q4H for now
Nephrology on board
CXR noted possible left upper lobe nodule vs costochondral calcification, informed pt to repeat CXR in 4 weeks with PCP
Procal negative hence r/o bacterial pneumonia
Stopped PATTERN MOLDER trazodone (can cause SIADH) and NSAID (may exacerbate hyponatremia)
TSH 9.65, FT4 0.73, suggestive of hypothyroidism, PATTERN MOLDER Synthroid increased from 100 mcg to 125 mcg
Random cortisol level low at 3, not a true reflection given pt may have been on prednisone PATTERN MOLDER, can consider repeat cortisol level outpt with PCP when off prednisone
Cont Fluid restriction to [address] head ordered in ED is WNL
# recent sinusitis on Augmentin and ?steroid taper
Per sister, pt has completed Abx course.
Hold further prednisone
# Hypothyroidism
TSH 9.65, FT4 0.73, suggestive of hypothyroidism, for now cont PATTERN MOLDER Synthroid at 100 mcg and consider increasing dose when sodium level corrected
# Asthma
Continue home medication as needed
# insomnia
Recently started trazodone, stop going forward
Stop PATTERN MOLDER temazepam
monitor MS, improved
DVT� sequential compression devices
Full code
Anticipated Discharge: > 48 hours
Subjective/Interval History
-
Date of Service: November 03, 2023
Objective Data
-
Labs:
Laboratory Results
11/02/23 11/03/23 11/03/23
21:07 01:22 10:00
WBC
Hgb
Hct
Plt Count
Sodium 117 L* 119 L* Pending
Potassium
Chloride
Carbon Dioxide
BUN
Creatinine
Glucose
Calcium
Total Bilirubin
AST
ALT
Alkaline Phosphatase
11/03/23 11/03/23 11/03/23
14:00 18:00 22:00
WBC
Hgb
Hct
Plt Count
Sodium Pending Pending Pending
Potassium
Chloride
Carbon Dioxide
BUN
Creatinine
Glucose
Calcium
Total Bilirubin
AST
ALT
Alkaline Phosphatase
11/03/23
Unknown
WBC 5.4
Hgb 12.7 L
Hct 33.9 L
Plt Count 334
Sodium 121 L
Potassium 4.7
Chloride 89 L
Carbon Dioxide 21 L
BUN 9
Creatinine 0.6 L
Glucose 86
Calcium 8.8
Total Bilirubin 0.6
AST 42
ALT 42
Alkaline Phosphatase 58
Vital Signs:
Vital Signs
Temp Pulse Resp BP Pulse Ox
36.4 C 64 14 111/74 98
11/03/23 03:22 11/02/23 23:02 11/02/23 08:00 11/02/23 22:56 11/02/23 22:58
I&O
11/02/23 11/03/23 11/04/23
06:59 06:59 06:59
Intake Total 2525 / 2525 540 / 540
Output Total 2150 / 2150 950 / 950
Balance 375 / 375 -410 / -410
Review of Systems
-
All other systems: Reviewed and negative
Physical Exam
-
General: Well Developed, Well Nourished, No Apparent Distress, Comfortable and Conversant
HEENT: Normocephalic, Atraumatic, Nose Appears Normal and Ears Appear Normal
Respiratory: Clear to Auscultation and Non Labored Respirations; Negative Accessory Resp Muscle Use
Cardiac: Regular Rhythm and S1/S2
GI: Soft, Nontender and Nondistended
Musculoskeletal: No Clubbing, No Cyanosis and No Edema
Skin: Warm and Dry
Neuro: Awake and Alert
Psych: Calm and Intact Judgement/Insight (somewhat)
Data Reviewed
-
CT Scan: Report Reviewed by me
Labs: Labs Reviewed by me
[2023-11-03] MEDS: SODIUM CHLORIDE 3% 250 IV ×2 (09:07→22:57)
--- NOTE | 2023-11-03 13:59 | W.PN.NEPH.PH ---
Today's Communication / Plan
-
- FR
- 3%
Assessment/Plan
-
IMP:
Acute metabolic encephalopathy
possible symptomatic hyponatremia
?recent CAP
Hypothyroidism
Asthma
Insomnia
Anemia
Eosinophilia
PLan:
A/w fall, gen weakness and lethargy
likely symptomatic hyponatremia na at 116, continues to have mild confusion with Na at 121
no previous h/o hyponatremia per pt
urine osm and urine Na --> indicative of hypovolemic hypoantremia + excessive ADH state
rapid correction with 3%. initiated on D5W by Dr. Parks to correct overcorrection. now very stable. very minimal improvement with 3% yesterday, will try at a faster rate today
goal Na of 128-130 by tomorrow AM
cortisol is low but likely in the setting of prednisone usage
TSH elevated and T4 low --> okay to uptitrate levothyroxine
could consider pulm c/s for eosinophilia + CXR findings --> ABPA? pulm eosinophilia? could also explain some of hyponatremia and excess ADH
avoid NSAIDs
BP soft , monitor for now
FR today to 48oz
anemia-UPCR wnl, check fe panel
d/w pt
-
-
Date of Service: November 03, 2023
CC / HPI / ROS
-
Chief Complaint:
hyponatremia
History of Present Illness:
Na 116 --> 121 over >24 hours
hold further fluids
Review of Systems:
appears slightly confused
no complaints
Labs
-
Labs:
WBC 5.4 10^3/uL (4.8-10.8) 11/03/23 Unknown
RBC 4.12 10^6/uL (4.70-6.10) L 11/03/23 Unknown
Hgb 12.7 g/dL (13.0-18.0) L 11/03/23 Unknown
Hct 33.9 % (39.0-52.0) L 11/03/23 Unknown
Plt Count 334 10^3/uL (130-400) 11/03/23 Unknown
Sodium 121 mmol/L (135-145) L 11/03/23 Unknown
Potassium 4.7 mmol/L (3.5-5.1) 11/03/23 Unknown
Chloride 89 mmol/L (98-107) L 11/03/23 Unknown
Carbon Dioxide 21 mmol/L (22-30) L 11/03/23 Unknown
BUN 9 mg/dl (9-20) 11/03/23 Unknown
Creatinine 0.6 mg/dL (0.7-1.3) L 11/03/23 Unknown
eGFR > 60.00 11/03/23 Unknown
Glucose 86 mg/dl (70-99) 11/03/23 Unknown
Calcium 8.8 mg/dl (8.4-10.2) 11/03/23 Unknown
Albumin 3.6 g/dl (3.5-5.0) 11/03/23 Unknown
Physical Exam
-
Vital Signs:
Vital Signs
Temp Pulse Resp BP Pulse Ox
97.3 F 64 14 111/74 98
11/03/23 11:30 11/02/23 23:02 11/02/23 08:00 11/02/23 22:56 11/02/23 22:58
Cardiovascular:: Regular rate and rhythm
Respiratory:: Bilateral: CTA
Lung Excursion:: Normal
Abdomen:: Nontender and Soft
Bowel Sounds:: Normal
Extremity Edema:: None: Bilateral:
Lau Catheter: No
[2023-11-03 14:41] LABS: Sodium 121 mmol/L (135-145)
[2023-11-03 22:11] LABS: Sodium 119 mmol/L (135-145)
--- NOTE | 2023-11-03 22:41 | W.PN.UPDATE ---
Update Note
Progress Note Update
Sodium level dropped down from 121 to 119 after 3% saline completed. 3% saline restarted with rate 30ml/hr as recommended by ground helper street railway environmental coordinator. Will continue monitoring sodium level.
--- NOTE | 2023-11-03 23:08 | PTCARENOTE ---
Addendum entered by Lindsey Love 11/04/23 02:36:
3% hanging at 30cc/hr per nephrology suggestion and JACKET CHANGER order. Pt Na came up to 122. JACKET CHANGER and nephrology notified of new lab value. No new orders at this time.
Original Note:
Pt answers orientation questions appropriately, but is confused at times to situation. Pt frequently asks this RN how long he will be here and if he will miss his commitments at the end of November due to his stay. Pt Na was 119, JACKET CHANGER and
big machine consultant notified and orders received to start IV 3% at 30mls/hr. Pt reminded to limit fluid intake due to 1440 fluid restriction. Medsitter remains in place for patient safety.
[2023-11-04 00:17] VITALS: BP 113/64
[2023-11-04 01:43] LABS: Sodium 122 mmol/L (135-145)
[2023-11-04 04:17] VITALS: BMI 22.8
[2023-11-04 05:57] LABS: ALT (SGPT) 34 U/L (0-50); AST (SGOT) 36 U/L (17-59); Albumin 3.4 g/dl (3.5-5.0); Alkaline Phosphatase 53 U/L (38-126); Blood Urea Nitrogen 9 mg/dl (9-20); Calcium 8.6 mg/dl (8.4-10.2); Carbon Dioxide 20 mmol/L (22-30); Chloride 94 mmol/L (98-107); Estimated Creatinine Clearance 108 ml/min; Glucose 89 mg/dl (70-99); Potassium 4.5 mmol/L (3.5-5.1); Sodium 123 mmol/L (135-145); Total Bilirubin 0.5 mg/dl (0.2-1.3); Total Protein 5.7 g/dl (6.3-8.2); eGFR > 60.00
[2023-11-04] MEDS: SYNTHROID 125 MCG PO (06:22)
--- NOTE | 2023-11-04 08:40 | W.PN.HOSP.TC ---
Addendum entered and electronically signed by Deep Rouse MD 11/04/23 15:36:
Acute metabolic encephalopathy likely secondary to hyponatremia.
S/p multiple 3% saline dosages by nephrology without significant improvement.
Now we will trial tolvaptan.
Seems improved however still with tangential thought process hallucinations and sleep disturbances
Hyponatremia secondary to SIADH
Please see above
Tangential thought process with hallucinations/sleep disturbance for which I was concerned for psychosis versus bipolar.
Psychiatry consulted
Stop trazodone
Start melatonin
Treat underlying medical conditions
Outpatient psychiatry follow-up
Peripheral eosinophilia could be essential or ABPA versus hypersensitivity pneumonitis versus eosinophilic induced asthma
Pulmonary consulted
May need outpatient sales agent financial report service follow-up
Original Note:
Today's Communication/Plan
-
Psychiatry consult
Pulmonary consult
Assessment / Plan
Assessment / Plan
HPI: 68-year-old male with past medical history of hypothyroidism, asthma; p/w lethargy, weakness and confusion.
A/P:
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
Sodium level 116 on admission, s/p 3% multiple boluses NSS, D5W
Sodium 123 this morning
Nephrology on board, and managing fluids
cont monitor sodium level Q4H for now
Nephrology started the patient on tolvaptan
CXR noted possible left upper lobe nodule vs costochondral calcification, informed pt to repeat CXR in 4 weeks with PCP
Procal negative hence r/o bacterial pneumonia
Holding CNC LASER OPERATOR trazodone (potential causes of SIADH) and NSAID (may exacerbate hyponatremia)
Random cortisol level low at 3, not a true reflection given pt may have been on prednisone CNC LASER OPERATOR, can consider repeat cortisol level outpt with PCP when off prednisone
Fluid restriction to [address] head in ED was WNL
# sinusitis on Augmentin and ?steroid taper
Per sister, pt has completed Abx course.
Hold further prednisone
# Hypothyroidism
TSH 9.65, FT4 0.73
Patient on home dose of 100 mcg Synthroid
Synthroid increased from 100 mcg to 125. consider rechecking levels and adjusting dose when sodium level corrected
#Eosinophilia
Patient is has persistent eosinophilia on labs
Left upper lobe nodule was noted on chest x-ray
Pulmonology consulted
Continue to monitor daily CBC with differential
# Asthma
Patient reports no symptoms
Continue home medication as needed
# insomnia
Patient reports 2-1/2 months of insomnia restlessness, racing thoughts
Psychiatry consulted to evaluate for bipolar disorder
As needed melatonin 3 mg ordered
Recently started trazodone, currently holding
Stop CNC LASER OPERATOR temazepam
Continue to monitor mental status, currently patient is at baseline conversant and pleasant
Diet: Regular
DVT� sequential compression devices
Full code
Anticipated Discharge: Within 24 hours
Subjective/Interval History
-
Date of Service: November 04, 2023
Patient reports issues sleeping overnight
Objective Data
-
Labs:
Laboratory Results
11/03/23 11/03/23 11/04/23
21:39 21:39 01:23
WBC
Hgb
Hct
Plt Count
Sodium Cancelled 119 L* 122 L
Potassium
Chloride
Carbon Dioxide
BUN
Creatinine
Glucose
Calcium
Total Bilirubin
AST
ALT
Alkaline Phosphatase
11/04/23
05:33
WBC Pending
Hgb Pending
Hct Pending
Plt Count Pending
Sodium 123 L
Potassium 4.5
Chloride 94 L
Carbon Dioxide 20 L
BUN 9
Creatinine 0.6 L
Glucose 89
Calcium 8.6
Total Bilirubin 0.5
AST 36
ALT 34
Alkaline Phosphatase 53
Vital Signs:
Vital Signs
Temp Pulse Resp BP Pulse Ox
98.1 F 64 14 113/64 98
11/04/23 07:18 11/02/23 23:02 11/02/23 08:00 11/04/23 00:17 11/03/23 23:08
I&O
11/03/23 11/04/23 11/05/23
06:59 06:59 06:59
Intake Total 540 / 540 720 / 720
Output Total 950 / 950 1505 / 1505
Balance -410 / -410 -785 / -785
Review of Systems
-
History Source: Patient
Constitutional: Reports No Symptoms
Respiratory: Reports No Symptoms
Cardiac: Reports No Symptoms
Abdomen/GI: Reports No Symptoms
Physical Exam
-
General: Well Developed, Well Nourished, No Apparent Distress, Comfortable and Conversant
Respiratory: Clear to Auscultation
Cardiac: Regular Rhythm and S1/S2
GI: Soft, Nontender and Nondistended
Musculoskeletal: No Edema
Skin: Warm and Dry
Neuro: Awake, Alert, Oriented and AO x 3
Psych: Other (Extremely talkative, circular reasoning)
Data Reviewed
-
Diagnostic Radiology: Report Reviewed by me and Discussed with Physician
Labs: Labs Reviewed by me and Discussed with Physician
[2023-11-04 08:57] LABS: % Basophils 0.7 % (0-2); % Eosinophils 23.1 % (0-6); % Immature Granulocytes 0.7 % (0-0.5); % Monocytes 9.6 % (1.7-9.3); % Neutrophils 19.9 % (42.2-75.2); Absolute Eosinophils 1.3 10^3/uL (0-0.7); Absolute Lymphocytes 2.6 10^3/uL (1.2-3.4); Absolute Monocytes 0.5 10^3/uL (0.1-0.6); Absolute Neutrophils 1.1 10^3/uL (1.4-6.5); Hematocrit 33.2 % (39.0-52.0); Hemoglobin 12.4 g/dL (13.0-18.0); Mean Corp Hgb Conc. 37.3 g/dL (33.0-37.0); Mean Corpuscular Hgb 31.9 pg (27.0-31.0); Mean Corpuscular Volume 85.3 fL (80.0-94.0); Mean Platelet Volume 9.4 fL (7.4-10.4); Nucleated Red Blood Cells % 0 % (-); Platelet Count 280 10^3/uL (130-400); Red Blood Cell Count 3.89 10^6/uL (4.70-6.10); Red Cell Dist. Width 13.1 % (11.5-14.5); White Blood Cell Count 5.5 10^3/uL (4.8-10.8)
--- NOTE | 2023-11-04 10:19 | W.PN.NEPH.PH ---
Today's Communication / Plan
-
[facility]
Assessment/Plan
-
IMP:
Acute metabolic encephalopathy
possible symptomatic hyponatremia
?recent CAP
Hypothyroidism
Asthma
Insomnia
Anemia
Eosinophilia
Plan:
samsca today
follow BMP
continue synthroid
hypothyroidism not severe enough to cause confusion
continue FR
-
-
Date of Service: November 04, 2023
CC / HPI / ROS
-
Chief Complaint:
hyponatremia
History of Present Illness:
Na up to 123 with 3%
BP stable
Review of Systems:
no CP/SOB
no complaints
Labs
-
Labs:
WBC 5.5 10^3/uL (4.8-10.8) 11/04/23 05:33
RBC 3.89 10^6/uL (4.70-6.10) L 11/04/23 05:33
Hgb 12.4 g/dL (13.0-18.0) L 11/04/23 05:33
Hct 33.2 % (39.0-52.0) L 11/04/23 05:33
Plt Count 280 10^3/uL (130-400) 11/04/23 05:33
Sodium 123 mmol/L (135-145) L 11/04/23 05:33
Potassium 4.5 mmol/L (3.5-5.1) 11/04/23 05:33
Chloride 94 mmol/L (98-107) L 11/04/23 05:33
Carbon Dioxide 20 mmol/L (22-30) L 11/04/23 05:33
BUN 9 mg/dl (9-20) 11/04/23 05:33
Creatinine 0.6 mg/dL (0.7-1.3) L 11/04/23 05:33
eGFR > 60.00 11/04/23 05:33
Glucose 89 mg/dl (70-99) 11/04/23 05:33
Calcium 8.6 mg/dl (8.4-10.2) 11/04/23 05:33
Albumin 3.4 g/dl (3.5-5.0) L 11/04/23 05:33
Physical Exam
-
Vital Signs:
Vital Signs
Temp Pulse Resp BP Pulse Ox
98.1 F 64 14 113/64 98
11/04/23 07:18 11/02/23 23:02 11/02/23 08:00 11/04/23 00:17 11/03/23 23:08
Cardiovascular:: Regular rate and rhythm
Respiratory:: Bilateral: Coarse
Lung Excursion:: Normal
Abdomen:: Nontender and Soft
Bowel Sounds:: Normal
Extremity Edema:: None: Bilateral:
[2023-11-04 11:42] VITALS: BP 112/69
[2023-11-04] MEDS: SAMSCA 15 MG PO (11:48)
[2023-11-04 11:56] VITALS: BP 109/62
--- NOTE | 2023-11-04 13:27 | CS.PSYCHR ---
Consult Summary - Psychiatry
-
Pt is a 68 yo male who presented with lethargy, confusion, weakness, visual perceptual disturbances; admitted with hyponatremia. Psychiatry asked to evaluate for Bipolar d/o due to insomnia, tangential thoughts, pressured speech. Pt seen sitting
up in chair, alert, in no distress, talkative but easily redirected. He reports he was recently started on Trazodone in addition to Temazepam (Rx filled on 10/17) for insomnia. Pt also reports he was recently placed on Levothyroxine 'a couple weeks
ago' after his physical and blood work with his PCP. TSH on admission was 9.65; T4 0.73 (just below reference range). Sodium on admission was 116, improved to 123 today. Trazodone has been held. Pt states he was not sleeping for a couple nights
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
PMH: childhood asthma, recent dx of hypothyroidism, past bilat inguinal hernias and umbilical hernia
Psych Hx: denies any prior psychiatric problems or treatment
SH: lives alone for the past 40 years, son is in [place], dtr in [place]. 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
MSE: alert, oriented, calm, cooperative. Talkative, telling stories about his calling to entertain children, especially special-needs kids. Speech mildly pressured, but pt is easily redirected. No signs of teto or psychosis. Pt becomes
emotional talking about his career, affect is overall appropriate. Cognition appears intact. Insight intact.
Imp: TME, improving, due to hyponatremia and possibly recently prescribed insomnia medications
Insomnia, etiology unclear, possibly related to initiation of thyroid medication. Pressured and tangential speech likely related to lack of sleep, initiation of Levothyroxine. Do not find Bipolar d/o- would not typically present at this
age. In any case, would not be able to diagnose a mood d/o until medical factors are ruled out.
Rec: agree with stopping Trazodone due to hyponatremia
agree with trying melatonin for insomnia
Do not see any indication for psychiatric treatment
Will follow peripherally
--- NOTE | 2023-11-04 13:29 | CON.PUL ---
Consultation
Consultation Request
Date/Time Consultation Requested: 11/04/23
Date/Time Consultation Performed: 11/04/23
Performing Provider: Siddharth
Reason for Consultation: Asthma, Eos
Medical History
-
History of Present Illness:
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
found to be 116. He does take temazepam and trazodone for insomnia. He is started on 3% saline, psychiatry is consulted for ongoing hallucinations and sleep disturbance.
He has not been improving following 3% saline dosages by neurology.
He was noted to have significant peripheral eosinophils, checks x-ray demonstrating possible lung cancer.
He notes that he has had lifelong asthma but has been largely asymptomatic for most of his life. He does have comorbid seasonal allergies but has never had formal skin testing. He does admit to other drug allergies including contrast, penicillin,
food allergies including shellfish, polyethylene glycol and other chemicals. He denies any prior history of aspirin sensitivity, nasal polyps, mold exposure.
Lifelong non-smoker.
Denies any family history of significant pulmonary disease.
Has never seen pulmonary as outpatient.
.
Past Medical History
Past Medical History: Other (see list below)
Social History
Tobacco: Non-smoker
Alcohol: None
Drug: None
Family History
Family History: Reviewed & Not Pertinent
Allergies / Home Medications
Allergies
Allergy/AdvReac Type Severity Reaction Status Date / Time
Iodinated Contrast Media Allergy swelling;hi Verified 10/31/23 09:25
ves
polyethylene glycol Allergy swelling;bad Verified 10/31/23 09:25
rash
polysorbate 80 Allergy swelling;bad Verified 10/31/23 09:25
rash
shellfish derived Allergy swelling;bad Verified 10/31/23 09:25
rash
Tetanus Vaccines and Toxoid Allergy swelling;bad Verified 10/31/23 09:25
rash
Home Medications
�Medication �Instructions �Recorded �Confirmed �Last Taken �Type
albuterol sulfate 90 mcg/actuation 2 puff inhalation R Q6HPRN PRN 03/21/22 10/31/23 03/15/22 History
aerosol inhaler (Ventolin HFA) asthma
amoxicillin 875 mg-potassium 1 tab PO BID Infection 10/31/23 10/31/23 Unknown History
clavulanate 125 mg tablet
levothyroxine 100 mcg tablet 100 mcg PO DAILY Thyroid 10/31/23 10/31/23 Unknown History
(Synthroid)
meloxicam 15 mg tablet 15 mg PO DAILYPRN PRN mild pain 10/31/23 10/31/23 Unknown History
prednisone 10 mg tablets in a dose 0 mg PO PER PKG DIR 10/31/23 10/31/23 Unknown History
pack Anti-Inflammatory
temazepam 15 mg capsule 15 mg PO HS Mental Health/Anxiety 10/31/23 10/31/23 Unknown History
therapeutic multivitamin 1 tab PO DAILY Supplement 10/31/23 10/31/23 Unknown History
trazodone 100 mg tablet 100 mg PO HSPRN PRN sleep 10/31/23 10/31/23 Unknown History
Review of Systems
-
History Source: Patient
All other systems: Negative unless noted
Vitals / Labs / Diagnostic Testing
Vital Signs
Temp Pulse Resp BP Pulse Ox
97.7 F 68 14 109/62 99
11/04/23 12:13 11/04/23 11:56 11/02/23 08:00 11/04/23 11:56 11/04/23 11:56
Lab Data
11/04/23 05:33
11/04/23 05:33
Diagnostic Testing:
Physical Exam
-
HEENT: Normocephalic, Anicteric and Moist Mucous Membranes
Cardiovascular: S1/S2 and Regular Rhythm
Respiratory: Clear and Non-Labored Respirations
GI: Soft, Non Distended and Non Tender
Neurology: Awake, Alert, Oriented (to self) and Other (confusion at times, family notes he is not quite back to baseline, anxiety at baseline)
Skin: Warm, Dry and Good Color
General: Comfortable and Other (NAD)
Assessment
-
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
found to be 116. He does take temazepam and trazodone for insomnia. He is started on 3% saline, psychiatry is consulted for ongoing hallucinations and sleep disturbance.
He has not been improving following 3% saline dosages by neurology. He was noted to have significant peripheral eosinophils, checks x-ray demonstrating possible lung cancer. We are consulted for eval.
Symptomatic hyponatremia, refractory to 3% saline
Possible SIADH
Confusion, hallucinations
Peripheral eosinophilia
Abnormal chest x-ray
Hypochloremia
Nongapped metabolic acidosis
Conditions present prior to admission
Asthma
Allergic rhinitis
History of insomnia, on trazodone and temazepam
Hypothyroidism on Synthroid
Plan
No oxygen was needed on admission, currently saturating >90% on RA
Prior history of lung disease is noted:
He notes that he has had lifelong asthma but has been largely asymptomatic for most of his life. Has not been on maintenance inhalers for many years
He does have comorbid seasonal allergies but has never had formal skin testing.
He does admit to other drug allergies including contrast, penicillin, food allergies including shellfish, polyethylene glycol and other chemicals.
He denies any prior history of aspirin sensitivity, nasal polyps, mold exposure.
Lifelong non-smoker.
Denies any family history of significant pulmonary disease.
Has never seen pulmonary as outpatient.
Lab testing reviewed with last reported normal eosinophils on 03/12/2022 at 4.0%
Since admission, eosinophil level 21.6% now increased to 25.2% and has been hovering in the 20% range
This could be related to asthma/allergies
Would need outpatient w/u for mold/HP panel/IgE
CXR obtained indicating ALLEN opacity/suspicious for PNA
We will obtain dedicated CT chest to evaluate
Low risk patient, nonsmoker
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
No prior ECHO for review
No history of cardiac dz noted
HypoNa, renal following
Has not resolved following 3% saline
To be dosed tolvaptan, possible SIADH
Correspondence reviewed
Confusion ongoing, not quite recovered
CT head neg
Psych eval obtained
Will need outpatient pulmonary evaluation in our office for PFTs and 6MWT
Reviewed with patient
Recurrent insomnia on temazepam and trazodone
Risk factors assessed for underlying sleep disordered breathing also noted, recommend outpatient PSG/sleep evaluation
Reviewed this plan with family at bedside, all questions answered
We will follow
Diagnostic Data
Chest X-Ray: 10/31/23-- Left upper lobe nodular opacity may represent pneumonia in the proper clinical context versus underlying pulmonary nodule. If there is no concern for an infectious/inflammatory process, CT of the chest may be performed on an
outpatient basis for further evaluation.
CT Scan: 10/31/23 HEAD neg
Echo:
PFT's:
Reports and relevant images were personally reviewed.
Total time spent on this consultation __78__ includes review of history, physical exam, medications, laboratory data, personal review of imaging, extensive review of outpatient records, discussion with care team and respiratory therapy.
--- NOTE | 2023-11-04 14:55 | CM ---
Patient with Dx Acute metabolic encephalopathy 2/2 symptomatic hyponatremia with SIADH, ALLEN pulmonary nodule. Room air. PT & OT recommend skilled rehab. Per nursing; confused, forgetful Medsitter.
Met with patient, brother Brandan who lives in [facility] and sister Ankita, who is here from [place].
Extensive conversation about short term SNF.
Patient has no family here.
Brandan would like patient to go to short term SNF for rehab near where he lives in [place].
The LTC is that patient will return home if his mentation improves.
Provided SNF list from [facility] website of SNFs within 25 miles of [facility] with ratings.
Answered their questions about whether [facility] will pay for SNF in [place] and ambulance transport- explained will know once referrals are made and facilities review.
Plan follow up with patient's brother for SNF preferences.
--- NOTE | 2023-11-04 15:39 | PTCARENOTE ---
Patient is Ax3 but is forgetful. Patient repeats same questions multiple times. Patient was educated about fluid restriction. Family at bedside with medsitter on. VS stable. will continue to monitor.
[2023-11-04 16:00] VITALS: BP 107/72
[2023-11-04 23:00] VITALS: BP 97/61
[2023-11-05] MEDS: SYNTHROID 125 MCG PO (05:07)
--- NOTE | 2023-11-05 05:36 | PTCARENOTE ---
pt able to answer all orientation questions although he requires frequent redirection. pt forgetful, setting off the bed alarm often, standing at the bedside to urinate. pt had one episode of hallucinations overnight in which he stated his 'brother
was sitting on the end of the bed.' pt requires reinforcement regarding his fluid restriction. med sitter remains active, pt's call thomas within reach, plan of care ongoing
[2023-11-05 06:03] LABS: % Basophils 0.7 % (0-2); % Eosinophils 20.5 % (0-6); % Immature Granulocytes 0.5 % (0-0.5); % Monocytes 11.4 % (1.7-9.3); % Neutrophils 26.9 % (42.2-75.2); Absolute Eosinophils 1.3 10^3/uL (0-0.7); Absolute Lymphocytes 2.5 10^3/uL (1.2-3.4); Absolute Monocytes 0.7 10^3/uL (0.1-0.6); Absolute Neutrophils 1.7 10^3/uL (1.4-6.5); Hematocrit 38.7 % (39.0-52.0); Hemoglobin 14.2 g/dL (13.0-18.0); Mean Corp Hgb Conc. 36.7 g/dL (33.0-37.0); Mean Corpuscular Hgb 31.9 pg (27.0-31.0); Mean Platelet Volume 8.9 fL (7.4-10.4); Nucleated Red Blood Cells % 0 % (-); Platelet Count 374 10^3/uL (130-400); Red Blood Cell Count 4.45 10^6/uL (4.70-6.10); Red Cell Dist. Width 13.2 % (11.5-14.5); White Blood Cell Count 6.2 10^3/uL (4.8-10.8)
[2023-11-05 06:16] LABS: ALT (SGPT) 35 U/L (0-50); AST (SGOT) 39 U/L (17-59); Albumin 3.9 g/dl (3.5-5.0); Alkaline Phosphatase 56 U/L (38-126); Blood Urea Nitrogen 12 mg/dl (9-20); Calcium 9.8 mg/dl (8.4-10.2); Carbon Dioxide 21 mmol/L (22-30); Chloride 100 mmol/L (98-107); Estimated Creatinine Clearance 81 ml/min; Glucose 90 mg/dl (70-99); Potassium 4.9 mmol/L (3.5-5.1); Sodium 133 mmol/L (135-145); Total Bilirubin 0.7 mg/dl (0.2-1.3); Total Protein 6.2 g/dl (6.3-8.2); eGFR > 60.00
[2023-11-05 07:24] VITALS: BP 94/66
--- NOTE | 2023-11-05 09:14 | W.PN.PUL3 ---
Addendum entered and electronically signed by Emiliana Messina DO 11/05/23 15:27:
Reviewed inhaler and nebulizer components with pharmacy, budesonide has polysorbate 80
Can add albuterol neb only as needed
Will need to assess for need for prednisone as OP
Original Note:
Today's Communication / Plan
-
[facility] and family
Can start daily ICS likely budesonide nebulizer due to history of propellant allergies (largely in MDIs)
Can continue as OP
Outpatient pulmonary FU recommended
Continue sodium management per team
Discharge planning ok from our perspective
Assessment
-
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
found to be 116. He does take temazepam and trazodone for insomnia. He is started on 3% saline, psychiatry is consulted for ongoing hallucinations and sleep disturbance.
He has not been improving following 3% saline dosages by neurology. He was noted to have significant peripheral eosinophils, checks x-ray demonstrating possible lung cancer. We are consulted for eval.
Symptomatic hyponatremia, refractory to 3% saline
Possible SIADH
Confusion, hallucinations
Peripheral eosinophilia
Abnormal chest x-ray
Hypochloremia
Nongapped metabolic acidosis
Conditions present prior to admission
Asthma
Allergic rhinitis
History of insomnia, on trazodone and temazepam
Hypothyroidism on Synthroid
Plan
No oxygen was needed on admission, currently saturating >90% on RA
Prior history of lung disease is noted:
He notes that he has had lifelong asthma but has been largely asymptomatic for most of his life. Has not been on maintenance inhalers for many years
He does have comorbid seasonal allergies but has never had formal skin testing.
He does admit to other drug allergies including contrast, penicillin, food allergies including shellfish, polyethylene glycol and other chemicals.
He denies any prior history of aspirin sensitivity, nasal polyps, mold exposure.
Lifelong non-smoker.
Denies any family history of significant pulmonary disease.
Has never seen pulmonary as outpatient.
Lab testing reviewed with last reported normal eosinophils on 03/12/2022 at 4.0%
Since admission, eosinophil level 21.6% now increased to 25.2% and has been hovering in the 20% range
This could be related to asthma/allergies
Would need outpatient w/u for mold/HP panel/IgE
CXR obtained indicating ALLEN opacity/suspicious for PNA
We will obtain dedicated CT chest to evaluate--reviewed extensively with family
CT does not confirm ALLEN mass, there are small 2mm nodules on RUL that are not concerning based on size
He has extensive bronchiectasis and hyperinflation, will need further OP w/u for this
Will start daily ICS for now, continue as OP
Reviewing alternatives to HFA as he has allergies to propellant (polyethylene glycol/polysorbate 80)
He should have formal OP allergy testing
Low risk patient, nonsmoker
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
No prior ECHO for review
No history of cardiac dz noted
HypoNa, renal following
Has not resolved following 3% saline
To be dosed tolvaptan, possible SIADH
Correspondence reviewed
Confusion ongoing, not quite recovered
CT head neg
Psych eval obtained
Will need outpatient pulmonary evaluation in our office for PFTs and 6MWT
Reviewed with patient
Recurrent insomnia on temazepam and trazodone, would hold meds for now
Risk factors assessed for underlying sleep disordered breathing also noted, recommend outpatient PSG/sleep evaluation
Reviewed this plan with family at bedside, all questions answered
We will follow
Diagnostic Data
Chest X-Ray: 10/31/23-- Left upper lobe nodular opacity may represent pneumonia in the proper clinical context versus underlying pulmonary nodule. If there is no concern for an infectious/inflammatory process, CT of the chest may be performed on an
outpatient basis for further evaluation.
CT Scan: 10/31/23 HEAD neg
CHEST 11/05/23- There are no abnormalities corresponding to the recent plain film finding in the left upper lobe. This is felt to be due to the first costochondral junction on the left and not a pulmonary abnormality.
There is an incidental 2 mm noncalcified solid pulmonary nodule in the lateral right upper lobe on image 58 series 303 and a similar smaller finding in the lateral right lower lobe on image 295 series 303.
Echo:
PFT's:
Reports and relevant images were personally reviewed.
Total time spent on this consultation __56__ includes review of history, physical exam, medications, laboratory data, personal review of imaging, extensive review of outpatient records, discussion with care team and respiratory therapy.
Subjective Data
-
Date of Service:
Date of Service: November 05, 2023
Chief Complaint: Pulmonary Follow Up
Subjective:
no new events, remains stable on RA
family at bedside
Objective Data
Data Reviewed
Vital Signs / I&O / Oxygen:
Vital Signs
Temp Pulse Resp BP Pulse Ox
97.8 F 86 18 94/66 95
11/05/23 07:24 11/05/23 07:24 11/05/23 07:24 11/05/23 07:24 11/05/23 07:24
Intake and Output
11/04/23 11/05/23 11/06/23
06:59 06:59 06:59
Intake Total 720 / 720 480 / 480
Output Total 1505 / 1505 1999 / 2000
Balance -785 / -785 -1520 / -1520
SaO2 95
Nasal Cannula flow liters per 2
minute
Physical Exam
General: Comfortable and Other (NAD)
HEENT: Normocephalic, Anicteric and Moist Mucous Membranes
Cardiovascular: S1-S2 and Regular Rhythm
Respiratory: Clear and Non-Labored Respirations
GI: Soft, Non Distended and Non Tender
Neurology: Awake, Alert, Oriented, AO x 3 and No Motor Deficits
Skin: Warm, Dry and Good Color
Labs/Micro/Reports
Lab Data
11/05/23 05:06
11/05/23 05:06
[2023-11-05] MEDS: SODIUM CHLORIDE 0.5 GRAM PO ×2 (10:32→20:43)
--- NOTE | 2023-11-05 10:32 | W.PN.UPDATE ---
Update Note
Progress Note Update
Patient seen at bedside with brother and sister in law, chart reviewed, discussed with staff. Mr. Fallon tells me he feels well today. He remains concerned with why he ended up in the hospital, why he was so confused, and why his sodium was low. We
spend a good deal of time discussing this. He tells me he has had trouble sleeping for quite some time and his friends and family have always joked that he is typically caught sleeping at random and somewhat inappropriate times (with company around)
during the day (sister in law mentions narcolepsy). They also mention that he appeared to have been taking many new medications all at once as he had not previously taken medications in the past. he was prescribed both 88mcg and 100mcg of Synthroid
and was taking both. He was also taking Trazodone and Temazepam for sleep as well as 2 additional medications. He explains he did not sleep well last night but relates this to how uncomfortable the bed was. Otherwise, no other complaints.
Leeanne is awake, alert, oriented x3, pleasant and cooperative. No s/s of psychosis, delusions, teto.
Impression/Recommendations: TME due to hyponatremia and possibly recently prescribed insomnia medications, improving; Insomnia, etiology unclear, will likely need further work up as outpatient - Melatonin as needed, Trazodone stopped, would also
recommend DC of temazepam. No indication for psychiatric treatment at this time.
--- NOTE | 2023-11-05 10:43 | W.PN.NEPH.PH ---
Today's Communication / Plan
-
NaCl
Assessment/Plan
-
IMP:
Acute metabolic encephalopathy
possible symptomatic hyponatremia
?recent CAP
Hypothyroidism
Asthma
Insomnia
Anemia
Eosinophilia
Plan:
no samsca today
follow BMP
continue synthroid
hypothyroidism not severe enough to cause confusion
add NaCl 500mg BID
continue FR
family asking for neurologic eval
-
-
Date of Service: November 05, 2023
CC / HPI / ROS
-
Chief Complaint:
hyponatremia
History of Present Illness:
Na up to 133 with samsca
BP stable but low
family still thinks he is not totally himself
Review of Systems:
no CP/SOB
no complaints
Labs
-
Labs:
WBC 6.2 10^3/uL (4.8-10.8) 11/05/23 05:06
RBC 4.45 10^6/uL (4.70-6.10) L 11/05/23 05:06
Hgb 14.2 g/dL (13.0-18.0) 11/05/23 05:06
Hct 38.7 % (39.0-52.0) L 11/05/23 05:06
Plt Count 374 10^3/uL (130-400) D 11/05/23 05:06
Sodium 133 mmol/L (135-145) L D 11/05/23 05:06
Potassium 4.9 mmol/L (3.5-5.1) 11/05/23 05:06
Chloride 100 mmol/L (98-107) 11/05/23 05:06
Carbon Dioxide 21 mmol/L (22-30) L 11/05/23 05:06
BUN 12 mg/dl (9-20) 11/05/23 05:06
Creatinine 0.8 mg/dL (0.7-1.3) 11/05/23 05:06
eGFR > 60.00 11/05/23 05:06
Glucose 90 mg/dl (70-99) 11/05/23 05:06
Calcium 9.8 mg/dl (8.4-10.2) 11/05/23 05:06
Albumin 3.9 g/dl (3.5-5.0) 11/05/23 05:06
Physical Exam
-
Vital Signs:
Vital Signs
Temp Pulse Resp BP Pulse Ox
97.8 F 86 18 94/66 95
11/05/23 07:24 11/05/23 07:24 11/05/23 07:24 11/05/23 07:24 11/05/23 07:24
--- NOTE | 2023-11-05 12:19 | CM ---
PT OT evals +SNF.
Spoke with brother Brandan [phone] who lives in [facility]. He picked [facility], [facility] . All entered in care port.
Pt will need [employer] auth for SNF.
PLAN To SNf after auth
--- NOTE | 2023-11-05 13:12 | W.PN.HOSP.TC ---
Addendum entered and electronically signed by Deep Rouse MD 11/06/23 11:55:
Acute metabolic encephalopathy likely secondary to hyponatremia.
S/p multiple 3% saline dosages by nephrology without significant improvement.
Now we will trial tolvaptan.
-Improved Na to 133.
- - Nephrology started Salt tabs 500mg BID
- - Repeat labs in 1 weeks.
Hyponatremia secondary to SIADH
Please see above
Tangential thought process with hallucinations/sleep disturbance for which I was concerned for psychosis versus bipolar.
Psychiatry consulted
Stop trazodone
Start melatonin
Treat underlying medical conditions
Outpatient psychiatry follow-up
Peripheral eosinophilia could be essential or ABPA versus hypersensitivity pneumonitis versus eosinophilic induced asthma vs allergy
CTChest showing pulm nodules, will need to repeat chest CT in the enar future per Fleischner guidelines.
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
Original Note:
Today's Communication/Plan
-
Continue to monitor sodium with daily BMP
Increase melatonin to 5 mg as needed
Initiate sodium chloride tablets
Assessment / Plan
Assessment / Plan
HPI: 68-year-old male with past medical history of hypothyroidism, asthma; p/w lethargy, weakness and confusion.
A/P:
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
Sodium level 116 on admission, s/p 3% multiple boluses NSS, D5W
Sodium increased from 123-133
Nephrology recommended starting 500 mg twice daily sodium chloride tablets
cont monitor sodium level daily
Previously started on tolvaptan by nephrology
Patient will follow-up with nephrology as an outpatient
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
CT head in ED was WNL
PT OT has been following the patient, they currently are recommending nursing home facility for rehab as patient requires 1 person assist and is unsteady on his feet currently. Patient reluctantly agreed to go to nursing home facility before
being discharged home, brother and sister were present and agreed patient would be a good candidate for rehab.
# sinusitis on Augmentin and ?steroid taper
Per sister, pt has completed Abx course.
Hold further prednisone
# Hypothyroidism
TSH 9.65, FT4 0.73
Patient on home dose of 100 mcg Synthroid
Synthroid increased from 100 mcg to 125. consider rechecking levels and adjusting dose when sodium level corrected
#Eosinophilia
Patient is has persistent eosinophilia on labs
Left upper lobe nodule was noted on chest x-ray
Pulmonology consulted
Patient will follow-up with pulmonology as an outpatient for PFTs and eosinophilia/allergy workup
Continue to monitor daily CBC with differential
#Lung nodule
Pulmonary nodule was noted on chest x-ray incidentally
Procalcitonin was negative, patient afebrile
Patient received a CT chest without contrast which demonstrated to solid noncalcified pulmonary nodules 1 in the right upper, 1 in the right lower lobe continued surveillance was recommended
Nodules were read as incidental and benign
# Asthma
Patient reports no symptoms
Continue home medication as needed
# insomnia
Patient reports 2-1/2 months of insomnia restlessness, racing thoughts
Psychiatry consulted and ruled out any potential mood disorders
As needed melatonin increased to 5 mg
Recently started trazodone, currently holding
Stop RECYCLING OPERATOR temazepam
Continue to monitor mental status, currently patient is at baseline conversant and pleasant
Diet: Regular, fluid restriction 1400 mL
DVT� sequential compression devices
Full code
Anticipated Discharge: Within 24 hours
Subjective/Interval History
-
Date of Service: November 05, 2023
No acute events overnight
Objective Data
-
Labs:
Laboratory Results
11/05/23
05:06
WBC 6.2
Hgb 14.2
Hct 38.7 L
Plt Count 374 D
Sodium 133 L D
Potassium 4.9
Chloride 100
Carbon Dioxide 21 L
BUN 12
Creatinine 0.8
Glucose 90
Calcium 9.8
Total Bilirubin 0.7
AST 39
ALT 35
Alkaline Phosphatase 56
Vital Signs:
Vital Signs
Temp Pulse Resp BP Pulse Ox
97.8 F 86 18 94/66 95
11/05/23 07:24 11/05/23 07:24 11/05/23 07:24 11/05/23 07:24 11/05/23 07:24
I&O
11/04/23 11/05/23 11/06/23
06:59 06:59 06:59
Intake Total 720 / 720 480 / 480
Output Total 1505 / 1505 1999 / 1999
Balance -785 / -785 -1520 / -1520
Review of Systems
-
History Source: Patient
Constitutional: Reports No Symptoms
Respiratory: Reports No Symptoms
Cardiac: Reports No Symptoms
Abdomen/GI: Reports No Symptoms
Physical Exam
-
General: Well Developed, No Apparent Distress, Comfortable and Conversant
Respiratory: Clear to Auscultation
Cardiac: Regular Rhythm and S1/S2
GI: Soft, Nontender, Nondistended and Normal Bowel Sounds
Skin: Warm and Dry
Neuro: Awake, Alert, Oriented and AO x 3
Psych: Calm and Intact Judgement/Insight
Data Reviewed
-
CT Scan: Report Reviewed by me and Discussed with Physician
Labs: Labs Reviewed by me and Discussed with Physician
--- NOTE | 2023-11-05 13:23 | W.PN.UPDATE ---
Update Note
Progress Note Update
Acute metabolic encephalopathy likely secondary to hyponatremia.
S/p multiple 3% saline dosages by nephrology without significant improvement.
Now we will trial tolvaptan.
-Improved Na to 133.
- - Nephrology started Salt tabs 500mg BID
- - Repeat labs in 1 weeks.
Hyponatremia secondary to SIADH
Please see above
Tangential thought process with hallucinations/sleep disturbance for which I was concerned for psychosis versus bipolar.
Psychiatry consulted
Stop trazodone
Start melatonin
Treat underlying medical conditions
Outpatient psychiatry follow-up
Peripheral eosinophilia could be essential or ABPA versus hypersensitivity pneumonitis versus eosinophilic induced asthma vs allergy
CTChest showing pulm nodules, will need to repeat chest CT in the enar future per Fleischner guidelines.
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
[2023-11-05 15:34] VITALS: BP 89/60
[2023-11-05 16:11] VITALS: BP 82/50
[2023-11-05] MEDS: NSS 500 IV (16:34)
[2023-11-05 16:57] VITALS: BP 106/65; BP 86/56; PULSE 107; O2SAT 98
[2023-11-05] MEDS: MELATONIN 5 MG PO (20:45)
[2023-11-05 23:15] VITALS: BP 96/48
[2023-11-06] MEDS: SYNTHROID 125 MCG PO (04:45)
[2023-11-06 05:35] LABS: % Basophils 0.9 % (0-2); % Eosinophils 20.1 % (0-6); % Immature Granulocytes 0.4 % (0-0.5); % Lymphocytes 36.9 % (20.5-51.1); % Monocytes 10.2 % (1.7-9.3); % Neutrophils 31.5 % (42.2-75.2); Absolute Basophils 0.1 10^3/uL (0-0.2); Absolute Eosinophils 1.4 10^3/uL (0-0.7); Absolute Lymphocytes 2.5 10^3/uL (1.2-3.4); Absolute Monocytes 0.7 10^3/uL (0.1-0.6); Absolute Neutrophils 2.2 10^3/uL (1.4-6.5); Hematocrit 33.5 % (39.0-52.0); Hemoglobin 12.4 g/dL (13.0-18.0); Mean Corpuscular Hgb 32.3 pg (27.0-31.0); Mean Corpuscular Volume 87.2 fL (80.0-94.0); Nucleated Red Blood Cells % 0 % (-); Platelet Count 339 10^3/uL (130-400); Red Blood Cell Count 3.84 10^6/uL (4.70-6.10); Red Cell Dist. Width 13.5 % (11.5-14.5); White Blood Cell Count 6.9 10^3/uL (4.8-10.8)
[2023-11-06 05:35] LABS: COVID-19 Antigen Negative (Negative)
[2023-11-06 06:02] LABS: ALT (SGPT) 31 U/L (0-50); AST (SGOT) 35 U/L (17-59); Albumin 3.4 g/dl (3.5-5.0); Alkaline Phosphatase 49 U/L (38-126); Blood Urea Nitrogen 19 mg/dl (9-20); Calcium 9.1 mg/dl (8.4-10.2); Carbon Dioxide 22 mmol/L (22-30); Chloride 99 mmol/L (98-107); Estimated Creatinine Clearance 81 ml/min; Glucose 99 mg/dl (70-99); Potassium 4.7 mmol/L (3.5-5.1); Sodium 131 mmol/L (135-145); Total Bilirubin 0.5 mg/dl (0.2-1.3); Total Protein 5.6 g/dl (6.3-8.2); eGFR > 60.00
[2023-11-06 07:00] VITALS: BP 91/55
--- NOTE | 2023-11-06 08:41 | W.PN.PUL3 ---
Today's Communication / Plan
-
Reviewed extensively his allergies to polyethylene glycol/polysorbate 80, he is unable to use any MDI/HFA and cannot take budesonide neb
Only formulary med that can be given right now is albuterol via neb, so patient is aware not to use HFA
We will look into DPI as OP
Outpatient pulmonary FU recommended, reviewed again with patient and family
Discharge planning per team
Assessment
-
Patient is a 68-year-old male with past medical history of hypothyroidism, lifelong asthma who has been significantly fatigued, confusion and dizziness in the past 2 days [employer]ERTY [employer]. 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
found to be 116. He does take temazepam and trazodone for insomnia. He is started on 3% saline, psychiatry is consulted for ongoing hallucinations and sleep disturbance.
He has not been improving following 3% saline dosages by neurology. He was noted to have significant peripheral eosinophils, checks x-ray demonstrating possible lung cancer. We are consulted for eval.
Symptomatic hyponatremia, refractory to 3% saline
Possible SIADH
Confusion, hallucinations
Peripheral eosinophilia
Abnormal chest x-ray
Hypochloremia
Nongapped metabolic acidosis
Conditions present prior to admission
Asthma
Allergic rhinitis
History of insomnia, on trazodone and temazepam
Hypothyroidism on Synthroid
Plan
No oxygen was needed on admission, currently saturating >90% on RA
Prior history of lung disease is noted:
He notes that he has had lifelong asthma but has been largely asymptomatic for most of his life. Has not been on maintenance inhalers for many years
He does have comorbid seasonal allergies but has never had formal skin testing.
He does admit to other drug allergies including contrast, penicillin, food allergies including shellfish, polyethylene glycol and other chemicals.
He denies any prior history of aspirin sensitivity, nasal polyps, mold exposure.
Lifelong non-smoker.
Denies any family history of significant pulmonary disease.
Has never seen pulmonary as outpatient.
Lab testing reviewed with last reported normal eosinophils on 03/12/2022 at 4.0%
Since admission, eosinophil level 21.6% now increased to 25.2% and has been hovering in the 20% range
This could be related to asthma/allergies
Would need outpatient w/u for mold/HP panel/IgE
CXR obtained indicating ALLEN opacity/suspicious for PNA
We will obtain dedicated CT chest to evaluate--reviewed extensively with family
CT does not confirm ALLEN mass, there are small 2mm nodules on RUL that are not concerning based on size
He has extensive bronchiectasis and hyperinflation, will need further OP w/u for this
Will start daily ICS for now, continue as OP
Reviewing alternatives to HFA as he has allergies to propellant (polyethylene glycol/polysorbate 80)
He should have formal OP allergy testing
Low risk patient, nonsmoker
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
No prior ECHO for review
No history of cardiac dz noted
HypoNa, renal following
Has not resolved following 3% saline
To be dosed tolvaptan, possible SIADH
Correspondence reviewed
Improved, now >130
Confusion ongoing, not quite recovered
CT head neg
Psych eval obtained
Will need outpatient pulmonary evaluation in our office for PFTs and 6MWT
Reviewed with patient
Recurrent insomnia on temazepam and trazodone, would hold meds for now
Risk factors assessed for underlying sleep disordered breathing also noted, recommend outpatient PSG/sleep evaluation
Reviewed this plan with family at bedside, all questions answered
Discharge planning per team
Diagnostic Data
Chest X-Ray: 10/31/23-- Left upper lobe nodular opacity may represent pneumonia in the proper clinical context versus underlying pulmonary nodule. If there is no concern for an infectious/inflammatory process, CT of the chest may be performed on an
outpatient basis for further evaluation.
CT Scan: 10/31/23 HEAD neg
CHEST 11/05/23- There are no abnormalities corresponding to the recent plain film finding in the left upper lobe. This is felt to be due to the first costochondral junction on the left and not a pulmonary abnormality.
There is an incidental 2 mm noncalcified solid pulmonary nodule in the lateral right upper lobe on image 58 series 303 and a similar smaller finding in the lateral right lower lobe on image 295 series 303.
Echo:
PFT's:
Reports and relevant images were personally reviewed.
Total time spent on this consultation __50__ includes review of history, physical exam, medications, laboratory data, personal review of imaging, extensive review of outpatient records, discussion with care team and respiratory therapy.
Subjective Data
-
Date of Service:
Date of Service: November 06, 2023
Chief Complaint: Pulmonary Follow Up
Subjective:
Doing well, no new complaints
Reviewed with family care plan
Objective Data
Data Reviewed
Vital Signs / I&O / Oxygen:
Vital Signs
Temp Pulse Resp BP Pulse Ox
98.5 F 89 19 96/48 98
11/05/23 23:15 11/05/23 23:15 11/05/23 23:15 11/05/23 23:15 11/05/23 23:15
Intake and Output
11/05/23 11/06/23 11/07/23
06:59 06:59 06:59
Intake Total 480 / 480 690 / 690
Output Total 1999 / 1999 475 / 475
Balance -1520 / -1520 215 / 215
SaO2 98
Nasal Cannula flow liters per 2
minute
Physical Exam
General: Comfortable and Other (NAD)
HEENT: Normocephalic, Anicteric and Moist Mucous Membranes
Cardiovascular: S1-S2 and Regular Rhythm
Respiratory: Clear and Non-Labored Respirations
GI: Soft, Non Distended and Non Tender
Neurology: Awake, Alert, Oriented, AO x 3 and No Motor Deficits
Skin: Warm, Dry and Good Color
Labs/Micro/Reports
Lab Data
11/06/23 05:11
11/06/23 05:11
[2023-11-06 09:11] VITALS: BP 91/55; PULSE 76; O2SAT 100
[2023-11-06] MEDS: SODIUM CHLORIDE 0.5 GRAM PO (09:14)
--- NOTE | 2023-11-06 10:06 | W.PN.NEPH.PH ---
Today's Communication / Plan
-
ok for d/c per renal
Assessment/Plan
-
IMP:
Acute metabolic encephalopathy
possible symptomatic hyponatremia
?recent CAP
Hypothyroidism
Asthma
Insomnia
Anemia
Eosinophilia
Plan:
no samsca today
sodium slightly low at 131 [id number]
increase salt tab to 1gm BID
cont FR 48 ounces/day and encourage solute intake
BP soft, pt reports is chronic
BMP next week with PCP upon d/c
d/w pt
-
-
Date of Service: November 06, 2023
CC / HPI / ROS
-
Chief Complaint:
hyponatremia
History of Present Illness:
Na up to 133 down to 131 today
BP stable but low, reports chronically low
Review of Systems:
no CP/SOB
no complaints
no dizziness
Labs
-
Labs:
WBC 6.9 10^3/uL (4.8-10.8) 11/06/23 05:11
RBC 3.84 10^6/uL (4.70-6.10) L 11/06/23 05:11
Hgb 12.4 g/dL (13.0-18.0) L 11/06/23 05:11
Hct 33.5 % (39.0-52.0) L 11/06/23 05:11
Plt Count 339 10^3/uL (130-400) 11/06/23 05:11
Sodium 131 mmol/L (135-145) L 11/06/23 05:11
Potassium 4.7 mmol/L (3.5-5.1) 11/06/23 05:11
Chloride 99 mmol/L (98-107) 11/06/23 05:11
Carbon Dioxide 22 mmol/L (22-30) 11/06/23 05:11
BUN 19 mg/dl (9-20) 11/06/23 05:11
Creatinine 0.8 mg/dL (0.7-1.3) 11/06/23 05:11
eGFR > 60.00 11/06/23 05:11
Glucose 99 mg/dl (70-99) 11/06/23 05:11
Calcium 9.1 mg/dl (8.4-10.2) 11/06/23 05:11
Albumin 3.4 g/dl (3.5-5.0) L 11/06/23 05:11
Physical Exam
-
Vital Signs:
Vital Signs
Temp Pulse Resp BP Pulse Ox
98.5 F 76 17 91/55 100
11/05/23 23:15 11/06/23 07:00 11/06/23 07:00 11/06/23 07:00 11/06/23 07:00
Cardiovascular:: Regular rate and rhythm
Respiratory:: Bilateral: CTA
Lung Excursion:: Normal
Abdomen:: Nontender and Soft
Extremity Edema:: None: Bilateral:
Lau Catheter: No
--- NOTE | 2023-11-06 10:11 | CM ---
Addendum entered by Evelyn Aguilar RN 11/06/23 14:24:
Elisha mendez obtained auth from [place] [address] approved 7 days skilled level 1 from 11/05 to 11/11 .
Auth number [id number]
Acute care ambulance auth # [id number].
Ambulance set up for 5 pm today . Pt and sister Gisella aware.
PLAN To [facility]
Original Note:
PT OT evals =SNF.
Spoke with brother Brandan [phone] he picked [facility].
Spoke with [facility] she accepted pt.Covid requested ,Covid is negative.
Spoke with Danyell Tello to assist with auth for SNF.
Pt requested ambulance .
Medical nec completed.
[facility]
report [phone]
fax [phone]
PLAN To [facility] after auth
--- NOTE | 2023-11-06 11:13 | W.DCSUMMARY ---
Documented by User: Laron Bojorquez DO, Resident 11/06/23 11:21
Discharge Summary
Discharge Data
Date of Admission: 10/31/23
Date of Discharge: 11/06/23
-
Pending Results: No
Hospital Course
Discharging Physician : Nasim Bojorquez
Disposition : SNF
Primary care physician : Dr. Maya
Principal Discharge diagnosis : Acute hyponatremia
Chronic Discharge diagnosis : Hypothyroidism, lung nodule, asthma, insomnia, allergic rhinitis
Hospital Course : Hospital course: 68-year-old male presents to the emergency department for evaluation of 2 days of increasing confusion, stumbling, slowed speech, lucid dreams and insomnia. Patient was recently prescribed trazodone and temazepam
by his PCP. In the emergency department it was noted that his sodium was 115. Patient was admitted to IMU. Nephrology was consulted to correct the hyponatremia. After fluid restrictions, multiple 3% saline boluses, tolvaptan and sodium chloride
tablets the patient's sodium was corrected to within normal limits. During his stay it was incidentally found that the patient has an elevated TSH and low T4, patient takes levothyroxine 100 mcg/day. This was increased to 125 mcg/day. Psychiatry
was consulted to evaluate the patient for potential mood disorders. Psychiatry concluded that there is no concern for mood disorder and to properly evaluate the patient all medical factors we need to be ruled out. Patient was found to have
incidental eosinophilia on labs and lung nodule on chest x-ray. Pulmonology was consulted for eosinophilia and pulmonary nodule evaluation. Pulmonology also recommended starting daily ICS nebulizer and to continue as an outpatient with follow-up
in their office for further management. Patient received a CT chest without contrast which demonstrated two benign noncalcified pulmonary nodules. Patient will follow-up with pulmonology as outpatient for eosinophilia workup and for follow-up
imaging per Fleischner guidelines. Physical therapy evaluated the patient and found that he was unsteady on his feet and required 1 person to assist ambulating. Therefore it was recommended that the patient be discharged to a detention
facility for rehab before returning home. Patient will follow-up with pulmonology, Dr. Messina, in 4 to 6 weeks for eosinophilia workup, lung nodule imaging, asthma management. Patient will follow-up with Dr. Lili Maya in the [facility]
residency clinic within 1 week of his discharge from detention facility for TSH prescription and hypothyroidism management.
Important imaging findings :
10/31/[address] without contrast, findings:
There are no acute intracranial abnormalities.
There is no intracranial hemorrhage.
There is no edema or mass effect to suggest neoplasm.
There are no abnormal extra-axial fluid collections.
There are no focal areas of diminished density to suggest infarct.
10/31/2023 chest x-ray, impressions:
Left upper lobe nodular opacity may represent pneumonia in the proper clinical context versus underlying pulmonary nodule. If there is no concern for an infectious/inflammatory process, CT of the chest may be performed on an outpatient basis for
further evaluation.
11/05/[address] without contrast, findings:
No acute disease of the chest.
Incidental solid noncalcified right upper and lower lobe pulmonary nodules. Continued surveillance recommended
Fleischner Society 2017 guidelines for management of incidentally detected pulmonary nodules in adults
Procedure findings :
No procedures
Discharge Plan
-
Patient Disposition: Correction/SNF
Discharge Diagnosis/Procedures: Acute hyponatremia, hypothyroidism, eosinophilia, benign lung nodule, asthma, insomnia
Condition: Good
Diet: No restrictions
Activity: As tolerated
Driving Restrictions: As prior to admission
Bathing Restrictions: None
Blood Work: TSH reflex FT 4 in 4 weeks with your PCP
Other Services: PT and OT
Activity Restrictions/Additional Instructions:
Please follow-up with Dr. Messina, pulmonology in 4 to 6 weeks for reevaluation of your eosinophilia, pulmonary function tests and neck steps regarding monitoring of your lung nodules.
Please follow-up with Dr. Parks in 3 to 4 weeks.
Please follow-up with Dr. Maya, [facility] medicine, in 1 week after discharge from rehab facility.
Hospital course: 68-year-old male presents to the emergency department for evaluation of 2 days of increasing confusion, stumbling, slowed speech, lucid dreams and insomnia. Patient was recently prescribed trazodone and temazepam by his PCP. In
the emergency department it was noted that his sodium was 115. Patient was admitted to IMU. Nephrology was consulted to correct the hyponatremia. After fluid restrictions, multiple 3% saline boluses, tolvaptan and sodium chloride tablets the
patient's sodium was corrected to within normal limits. During his stay it was incidentally found that the patient has an elevated TSH and low T4, patient takes levothyroxine 100 mcg/day. This was increased to 125 mcg/day. Psychiatry was
consulted to evaluate the patient for potential mood disorders. Psychiatry concluded that there is no concern for mood disorder and to properly evaluate the patient all medical factors we need to be ruled out. Patient was found to have incidental
eosinophilia on labs and lung nodule on chest x-ray. Pulmonology was consulted for eosinophilia and pulmonary nodule evaluation. Pulmonology also recommended starting daily ICS nebulizer and to continue as an outpatient with follow-up in their
office for further management. Patient received a CT chest without contrast which demonstrated to benign noncalcified pulmonary nodules. Patient will follow-up with pulmonology as outpatient for eosinophilia workup and for follow-up imaging per
Fleischner guidelines. Physical therapy evaluated the patient and found that he was unsteady on his feet and required 1 person to assist ambulating. Therefore it was recommended that the patient be discharged to a detention facility for
rehab before returning home. Patient will follow-up with pulmonology, Dr. Messina, in 4 to 6 weeks for eosinophilia workup, lung nodule imaging, asthma management. Patient will follow-up with nephrology in 3 to 4 weeks for sodium recheck. patient will
follow-up with Dr. Lili Maya in the [facility] residency clinic within 1 week of his discharge from detention facility for TSH prescription and hypothyroidism management.
Imaging:
10/31/[address] without contrast, findings:
There are no acute intracranial abnormalities.
There is no intracranial hemorrhage.
There is no edema or mass effect to suggest neoplasm.
There are no abnormal extra-axial fluid collections.
There are no focal areas of diminished density to suggest infarct.
10/31/2023 chest x-ray, impressions:
Left upper lobe nodular opacity may represent pneumonia in the proper clinical context versus underlying pulmonary nodule. If there is no concern for an infectious/inflammatory process, CT of the chest may be performed on an outpatient basis for
further evaluation.
11/05/[address] without contrast, findings:
No acute disease of the chest.
Incidental solid noncalcified right upper and lower lobe pulmonary nodules. Continued surveillance recommended
Fleischner Society 2017 guidelines for management of incidentally detected pulmonary nodules in adults
Referrals:
Emiliana Messina DO [Active] - in four to six weeks (Asthma, PFTs)
Lili Maya MD, Resident [Family Practice Resident Year1] - in less than 1 week
Ritu Parks MD [Active] - in three to four weeks
Additional Discharge Medication Instructions: Please continue taking increased dose of levothyroxine, dose was increased from 100 to 125 mg. Please take 1 a day by mouth
Please take melatonin 5 mg by mouth as needed for insomnia
Prescriptions:
New
levothyroxine 125 mcg Tablet
125 mcg PO DAILY@0600 Qty: 90 2RF
melatonin 5 mg Tablet
5 mg PO HSPRN PRN (Reason: Insomnia) Qty: 30 2RF
Continued
albuterol sulfate [Ventolin HFA] 90 mcg/actuation Hfa Aerosol Inhaler
2 puff INHALATION R Q6HPRN PRN (Reason: asthma)
meloxicam 15 mg Tablet
15 mg PO DAILYPRN PRN (Reason: mild pain)
therapeutic multivitamin Tablet
1 tab PO DAILY
temazepam 15 mg Capsule
15 mg PO HS
Discontinued
prednisone 10 mg Tablets,Dose Pack
0 mg PO PER PKG DIR
Rx Instructions:
take 5 tablets daily for 1 day then 4 tablets daily fo 1 day then 3 tablets daiyl for 1 day then 2 daily for 1 day then 1 tablet daily for 1 day
levothyroxine [Synthroid] 100 mcg Tablet
100 mcg PO DAILY
trazodone 100 mg Tablet
100 mg PO HSPRN PRN (Reason: sleep)
amoxicillin-pot clavulanate [Augmentin] 875-125 mg Tablet
1 tab PO BID
Discharge Orders:
Discharge Patient (As Directed); Ordered 11/06/23
Ordered By: Laron Bojorquez
Discharge Date and Time
Print Language: SRI LANKAN

Documented by User: Deep Rouse MD 11/06/23 15:25
Discharge Summary
Discharge Data
Date of Admission: 10/31/23
Date of Discharge: 11/06/23
Discharge Plan
-
Patient Disposition: Correction/SNF
Discharge Diagnosis/Procedures: Acute hyponatremia, hypothyroidism, eosinophilia, benign lung nodule, asthma, insomnia
Condition: Good
Diet: No restrictions
Activity: As tolerated
Driving Restrictions: As prior to admission
Bathing Restrictions: None
Blood Work: TSH reflex FT 4 in 4 weeks with your PCP
Other Services: PT and OT
Activity Restrictions/Additional Instructions:
Please follow-up with Dr. Messina, pulmonology in 4 to 6 weeks for reevaluation of your eosinophilia, pulmonary function tests and neck steps regarding monitoring of your lung nodules.
Please follow-up with Dr. Parks in 3 to 4 weeks.
Please follow-up with Dr. Maya, family medicine, in 1 week after discharge from rehab facility.
Hospital course: 68-year-old male presents to the emergency department for evaluation of 2 days of increasing confusion, stumbling, slowed speech, lucid dreams and insomnia. Patient was recently prescribed trazodone and temazepam by his PCP. In
the emergency department it was noted that his sodium was 115. Patient was admitted to IMU. Nephrology was consulted to correct the hyponatremia. After fluid restrictions, multiple 3% saline boluses, tolvaptan and sodium chloride tablets the
patient's sodium was corrected to within normal limits. During his stay it was incidentally found that the patient has an elevated TSH and low T4, patient takes levothyroxine 100 mcg/day. This was increased to 125 mcg/day. Psychiatry was
consulted to evaluate the patient for potential mood disorders. Psychiatry concluded that there is no concern for mood disorder and to properly evaluate the patient all medical factors we need to be ruled out. Patient was found to have incidental
eosinophilia on labs and lung nodule on chest x-ray. Pulmonology was consulted for eosinophilia and pulmonary nodule evaluation. Pulmonology also recommended starting daily ICS nebulizer and to continue as an outpatient with follow-up in their
office for further management. Patient received a CT chest without contrast which demonstrated to benign noncalcified pulmonary nodules. Patient will follow-up with pulmonology as outpatient for eosinophilia workup and for follow-up imaging per
[place] guidelines. Physical therapy evaluated the patient and found that he was unsteady on his feet and required 1 person to assist ambulating. Therefore it was recommended that the patient be discharged to a detention facility for
rehab before returning home. Patient will follow-up with pulmonology, Dr. Messina, in 4 to 6 weeks for eosinophilia workup, lung nodule imaging, asthma management. Patient will follow-up with nephrology in 3 to 4 weeks for sodium recheck. patient will
follow-up with Dr. Lili Maya in the [facility] residency clinic within 1 week of his discharge from detention facility for TSH prescription and hypothyroidism management.
Imaging:
10/31/[address] without contrast, findings:
There are no acute intracranial abnormalities.
There is no intracranial hemorrhage.
There is no edema or mass effect to suggest neoplasm.
There are no abnormal extra-axial fluid collections.
There are no focal areas of diminished density to suggest infarct.
10/31/2023 chest x-ray, impressions:
Left upper lobe nodular opacity may represent pneumonia in the proper clinical context versus underlying pulmonary nodule. If there is no concern for an infectious/inflammatory process, CT of the chest may be performed on an outpatient basis for
further evaluation.
11/05/[address] without contrast, findings:
No acute disease of the chest.
Incidental solid noncalcified right upper and lower lobe pulmonary nodules. Continued surveillance recommended
Fleischner Society 2017 guidelines for management of incidentally detected pulmonary nodules in adults
Referrals:
Emiliana Messina, [Active] - in four to six weeks (Asthma, PFTs)
Lili Maya MD, Resident [Family Practice Resident Year1] - in less than 1 week
Ritu Parks MD [Active] - in three to four weeks
Additional Discharge Medication Instructions: Please continue taking increased dose of levothyroxine, dose was increased from 100 to 125 mg. Please take 1 a day by mouth
Please take melatonin 5 mg by mouth as needed for insomnia
Prescriptions:
New
levothyroxine 125 mcg Tablet
125 mcg PO DAILY@0600 Qty: 90 2RF
melatonin 5 mg Tablet
5 mg PO HSPRN PRN (Reason: Insomnia) Qty: 30 2RF
Continued
albuterol sulfate [Ventolin HFA] 90 mcg/actuation Hfa Aerosol Inhaler
2 puff INHALATION R Q6HPRN PRN (Reason: asthma)
meloxicam 15 mg Tablet
15 mg PO DAILYPRN PRN (Reason: mild pain)
therapeutic multivitamin Tablet
1 tab PO DAILY
temazepam 15 mg Capsule
15 mg PO HS
Discontinued
prednisone 10 mg Tablets,Dose Pack
0 mg PO PER PKG DIR
Rx Instructions:
take 5 tablets daily for 1 day then 4 tablets daily fo 1 day then 3 tablets daiyl for 1 day then 2 daily for 1 day then 1 tablet daily for 1 day
levothyroxine [Synthroid] 100 mcg Tablet
100 mcg PO DAILY
trazodone 100 mg Tablet
100 mg PO HSPRN PRN (Reason: sleep)
amoxicillin-pot clavulanate [Augmentin] 875-125 mg Tablet
1 tab PO BID
Discharge Orders:
Discharge Patient (As Directed); Ordered 11/06/23
Ordered By: Laron Bojorquez
Discharge Date and Time
Print Language: SRI LANKAN
--- NOTE | 2023-11-06 11:22 | W.PN.HOSP.TC ---
Addendum entered and electronically signed by Deep Rouse MD 11/06/23 15:27:
for dc to snf
na stable
Original Note:
Today's Communication/Plan
-
Plan discharge today
Assessment / Plan
Assessment / Plan
HPI: 68-year-old male with past medical history of hypothyroidism, asthma; p/w lethargy, weakness and confusion.
A/P:
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
Sodium level 116 on admission, s/p 3% multiple boluses NSS, D5W
Sodium 131 today
Nephrology recommended starting 500 mg twice daily sodium chloride tablets, will continue as outpatient
cont monitor sodium level daily
Previously started on tolvaptan by nephrology
Patient will follow-up with nephrology as an outpatient
Holding home dose trazodone (potential causes of SIADH) and NSAID (may exacerbate hyponatremia)
CT head in ED was WNL
PT OT has been following the patient, they currently are recommending group home facility for rehab as patient requires 1 person assist and is unsteady on his feet currently. Patient reluctantly agreed to go to group home facility before
being discharged home, brother and sister were present and agreed patient would be a good candidate for rehab.
Med sitter was started in ICU, once patient was transferred to [facility], med sitter was discontinued. Patient was off med sitter for more than 48 hours before time of discharge.
# sinusitis on Augmentin and ?steroid taper
Per sister, pt has completed Abx course.
Hold further prednisone
# Hypothyroidism
TSH 9.65, FT4 0.73
Patient on home dose of 100 mcg Synthroid
Synthroid increased from 100 mcg to 125. consider rechecking levels and adjusting dose when sodium level corrected
#Eosinophilia
Patient is has persistent eosinophilia on labs
Left upper lobe nodule was noted on chest x-ray
Pulmonology consulted
Patient will follow-up with pulmonology as an outpatient for PFTs and eosinophilia/allergy workup
Continue to monitor daily CBC with differential
#Lung nodule
Pulmonary nodule was noted on chest x-ray incidentally
Procalcitonin was negative, patient afebrile
Patient received a CT chest without contrast which demonstrated to solid noncalcified pulmonary nodules 1 in the right upper, 1 in the right lower lobe continued surveillance was recommended
Nodules were read as incidental and benign
# Asthma
Patient reports no symptoms
Continue home medication as needed
# insomnia
Patient reports 2-1/2 months of insomnia restlessness, racing thoughts
Psychiatry consulted and ruled out any potential mood disorders
As needed melatonin increased to 5 mg
Recently started trazodone, currently holding
Stop home dose temazepam
Will not restart trazodone due to concern for hyponatremia, patient will follow-up with primary doc to discuss reinitiation of trazodone and/or other insomnia medication
Continue to monitor mental status, currently patient is at baseline conversant and pleasant
Diet: Regular, fluid restriction 1400 mL
DVT� sequential compression devices
Full code
Anticipated Discharge: Today
Subjective/Interval History
-
Date of Service: November 06, 2023
Objective Data
-
Labs:
Laboratory Results
11/06/23
05:11
WBC 6.9
Hgb 12.4 L
Hct 33.5 L
Plt Count 339
Sodium 131 L
Potassium 4.7
Chloride 99
Carbon Dioxide 22
BUN 19
Creatinine 0.8
Glucose 99
Calcium 9.1
Total Bilirubin 0.5
AST 35
ALT 31
Alkaline Phosphatase 49
Vital Signs:
Vital Signs
Temp Pulse Resp BP Pulse Ox
98.5 F 76 17 91/55 100
11/05/23 23:15 11/06/23 07:00 11/06/23 07:00 11/06/23 07:00 11/06/23 07:00
I&O
11/05/23 11/06/23 11/07/23
06:59 06:59 06:59
Intake Total 480 / 480 690 / 690
Output Total 1999 475 / 475
Balance -1520 / -1520 215 / 215
Review of Systems
-
History Source: Patient
Constitutional: Reports No Symptoms
Respiratory: Reports No Symptoms
Cardiac: Reports No Symptoms
Abdomen/GI: Reports No Symptoms
Skin: Reports No Symptoms
Neuro: Reports No Symptoms
Physical Exam
-
General: Well Developed, Well Nourished, Comfortable and Conversant
Respiratory: Clear to Auscultation
Cardiac: Regular Rhythm and S1/S2
GI: Soft, Nontender, Nondistended and Normal Bowel Sounds
Skin: Warm and Dry
Neuro: Awake, Alert, Oriented and AO x 3
Psych: Calm and Intact Judgement/Insight
Data Reviewed
-
Labs: Labs Reviewed by me and Discussed with Physician
--- NOTE | 2023-11-06 12:11 | W.PN.UPDATE ---
Update Note
Progress Note Update
patient seen chart reviewed. spoke with nursing. 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 he seems to be a very spiritual person who credits god with providing him always with a way forward. he considered joining the [employer] order at some point but decided against it. patient admitted for hyponatremia.
we talked about what this is how it affects a person etc. suggested to him to be careful if anyone tries to prescribe antidepressants for him which can prescipitate or exacerbate hyponatremia. patient is likely to go to snf today. he is taking
only melatonin at this point for sleep. there was mention of bipolar in this record. at this point there do not seem to be affective sx sufficient to necessitate other psych meds. not clear if he is bipolar. psych signing off
--- NOTE | 2023-11-06 14:49 | W.PN.UPDATE ---
Update Note
Progress Note Update
Patient is currently at his baseline mentation, he is not confused and is aware of what is going on. Per physical therapy has difficulty ambulating on his own, he will require ambulance for safe discharge to rehab
[2023-11-06 15:00] VITALS: BP 104/54
[2023-11-06] MEDS: VENTOLIN NEBULES 2.5 MG INH (17:19)
== END 2023-11-06 19:03 | DRG 643 ==
LOC: 3 WEST ACU 12:03
PROVIDERS: Nurse Practitioner Family; Physician Assistant Medical; ADMITTING PHYSICIAN Internal Medicine; ATTENDING PHYSICIAN Hospitalist; CONSULT PHYSICIAN Internal Medicine; CONSULT PHYSICIAN Psychiatry & Neurology Psychiatry; EMERGENCY PHYSICIAN Emergency Medicine; FAMILY PHYSICIAN Nurse Practitioner Family
DX: E22.2 Syndrome of inappropriate secretion of antidiuretic hormone (principal); G93.41 Metabolic encephalopathy; E87.20 Acidosis, unspecified; E03.9 Hypothyroidism, unspecified; D64.9 Anemia, unspecified; E66.9 Obesity, unspecified; J45.909 Unspecified asthma, uncomplicated; D72.10 Eosinophilia, unspecified; E87.8 Other disorders of electrolyte and fluid balance, not elsewhere classified; G47.00 Insomnia, unspecified; E78.00 Pure hypercholesterolemia, unspecified; R73.03 Prediabetes; R91.8 Other nonspecific abnormal finding of lung field; R26.81 Unsteadiness on feet; Z68.24 Body mass index [BMI] 24.0-24.9, adult; Z79.890 Hormone replacement therapy; Z79.899 Other long term (current) drug therapy; Z87.19 Personal history of other diseases of the digestive system; Z87.01 Personal history of pneumonia (recurrent); Z88.8 Allergy status to other drugs, medicaments and biological substances; Z91.041 Radiographic dye allergy status
CPT/HCPCS: 70450; 71045; 71250; 80048; 80053; 81003; 82533; 82570; 82728; 83540; 83550; 83735; 83930; 83935; 84145; 84156; 84295; 84300; 84439; 84443; 85025; 87811; 93005; 96360; 97116; 97163; 97167; 97530; 97535; 99291

== ENCOUNTER 2023-12-03 12:30 | Emergency (ER) | payer OTHER, SELFPAY ==
[2023-12-03 12:32] VITALS: BP 110/70
[2023-12-03 13:12] LABS: % Basophils 0.5 % (0-2); % Eosinophils 18.6 % (0-6); % Immature Granulocytes 0.2 % (0-0.5); % Lymphocytes 37.4 % (20.5-51.1); % Monocytes 7.1 % (1.7-9.3); % Neutrophils 36.2 % (42.2-75.2); Absolute Eosinophils 1.2 10^3/uL (0-0.7); Absolute Lymphocytes 2.3 10^3/uL (1.2-3.4); Absolute Monocytes 0.4 10^3/uL (0.1-0.6); Absolute Neutrophils 2.2 10^3/uL (1.4-6.5); Hematocrit 32.1 % (39.0-52.0); Hemoglobin 11.5 g/dL (13.0-18.0); Mean Corp Hgb Conc. 35.8 g/dL (33.0-37.0); Mean Corpuscular Hgb 31.9 pg (27.0-31.0); Mean Corpuscular Volume 89.2 fL (80.0-94.0); Nucleated Red Blood Cells % 0 % (-); Red Cell Dist. Width 13.6 % (11.5-14.5); White Blood Cell Count 6.2 10^3/uL (4.8-10.8)
[2023-12-03 13:20] LABS: ALT (SGPT) 28 U/L (0-50); AST (SGOT) 38 U/L (17-59); Albumin 3.8 g/dl (3.5-5.0); Alkaline Phosphatase 49 U/L (38-126); Blood Urea Nitrogen 12 mg/dl (9-20); Calcium 8.8 mg/dl (8.4-10.2); Carbon Dioxide 19 mmol/L (22-30); Chloride 103 mmol/L (98-107); Glucose 83 mg/dl (70-99); Potassium 4.6 mmol/L (3.5-5.1); Sodium 136 mmol/L (135-145); Total Bilirubin 0.7 mg/dl (0.2-1.3); Total Protein 6.2 g/dl (6.3-8.2); eGFR > 60.00
[2023-12-03 13:35] LABS: NT-proBNP 205 pg/ml
[2023-12-03 13:57] VITALS: BMI 23.6
[2023-12-03 14:00] VITALS: BP 94/50
[2023-12-03 14:04] LABS: Platelet Count 230 10^3/uL (130-400)
[2023-12-03 14:09] VITALS: BP 109/59
[2023-12-03 15:00] VITALS: BP 108/65
[2023-12-03 15:25] LABS: COVID-19 Antigen Negative (Negative)
[2023-12-03 17:15] VITALS: BP 110/61
[2023-12-03 17:18] LABS: Urine Albumin Negative (Neg - Trace); Urine Bilirubin Negative (Negative); Urine Character Clear (Clear); Urine Color Yellow; Urine Glucose Negative (Negative); Urine Ketone 1+ (Negative); Urine Leukocyte Negative (Negative); Urine Nitrite Negative (Negative); Urine Occult Blood Negative (Negative); Urine Urobilinogen Negative (Neg - 1+)
--- NOTE | 2023-12-03 17:22 | ED.GENMED ---
History of Present Illness
General
Chief Complaint: Breathing Problem
Source: patient
Exam Limitations: none
Time Seen by Provider: 12/03/23 14:31
Nursing documentation reviewed up to this point in time: agreed with
History of Present Illness
History of Present Illness:
68 y/o M with h/o asthma, anxiety, diveritc, recnet hyponatremia
here from PCP office for fatigue, loking not well in follow up
was hospitalized 10/30-11/05 for hyponatremia
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
pt's sodium was corrected
he was incidnetally found to have esoisinphoilai and pulm nodule
ct othewrise neg
seen by pulm and psych
he has had ongoni memory issues making him living on his own difficult
his brother has been helping out and has taken him back with him to [place] where wily lives
over the weekend he had URI sxs develop with cough and cold sxs, sor throat
covid neg
started on augmentin
then started having vomiting x 1 and then a few epsiodes diarrhea daily since the augmentin
no abd pain, cp, fever, vomintng leg swelling
no new confusion but is generally weak
he is still able to get up and walk around on his own
his pcp today heard crackles in his lungs and felt he wa spale and dehydrated and sent him in
pt has not had any worsening confusion from preivous
Past History
Past History
ED Past Medical History: Asthma, Hypothyroidism and Psychiatric
ED Past Surgical History: Tonsilectomy and Other
Social History
Tobacco: Non-smoker
Alcohol: None
Drug: None
Personal: Single
Living: alone
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
Review of Systems
Review of Systems
Allergies reviewed?: Yes
All Other Systems: Not applicable
Phy Exam
Physical Exam
Physical Exam:
GENERAL: Alert , in no apparent distress
EYE: pupils equal and reactive
NECK: Supple
ENT: o/p clr, mmm.
CARDIAC: Regular rate and rhythm .
LUNGS: Clear breath sounds bilaterally, no acute respiratory distress, crackles bilateral bases
ABDOMEN: Soft, without focal tenderness, no r/g, no cvat, normal bowel sounds
NEUROLOGICAL: Alert and oriented, no focal neuro deficits
SKIN: Warm and dry, skin intact.
MUSCULOSKELETAL: No edema, well perfused. neg bharti's sign
PSYCH: Normal and appropriate interaction.
Scores
Heart Failure Risk
Heart Failure Risk Score: Not Applicable
Course
Orders/Labs/Results
Orders:
Orders
12/03/23 12:55
CMP [Comprehensive Metabolic Panel] Urgent
Complete Blood Count/With Diff Urgent
NT-proBNP Urgent
12/03/23 14:54
CR Chest - 2 Views Urgent
Comment:
Reason For Exam: crackles, cough
12/03/23 14:58
COVID-19 Antigen Urgent
Source: Nasal Swab
Influenza A+B Rapid Molecular Urgent
RUPAL Source: Nasal Swab
Specimen Description:
12/03/23 16:55
Electrocardiogram (*1) Urgent
Reason for Study: Fatigue / Weakness
EKG- Treatment ONCE
12/03/23 17:02
Urinalysis Reflex To Culture Urgent
Date Specimen was Collected: 12/03/23
Time Specimen was Collected: 17:01
12/03/23 18:15
C DIFF [C difficile Antigen & Toxins] Urgent
RUPAL Source: Feces/Stool
Specimen Description:
Date Specimen was Collected: 12/03/23
Time Specimen was Collected: 18:13
Stool Culture Urgent
RUPAL Source: Feces/Stool
Specimen Description:
Date Specimen was Collected: 12/03/23
Time Specimen was Collected: 18:13
12/03/23 18:16
Azithromycin [Zithromax] 500 mg PO NOW STA
Doxycycline [Vibramycin] 100 mg PO NOW STA
Abnormal Lab Results
12/03/23 12/03/23
12:55 17:02
RBC 3.60 L 10^6/uL
(4.70-6.10)
Hgb 11.5 L g/dL
(13.0-18.0)
Hct 32.1 L %
(39.0-52.0)
MCH 31.9 H pg
(27.0-31.0)
Absolute Eos (auto) 1.2 H 10^3/uL
(0-0.7)
Neutrophils % 36.2 L %
(42.2-75.2)
Eosinophils % 18.6 H %
(0-6)
Carbon Dioxide 19 L mmol/L
(22-30)
Total Protein 6.2 L g/dl
(6.3-8.2)
Urine Ketones 1+ A
(Negative)
12/03/23 12:55
12/03/23 12:55
Vital Signs
Initial and Last Documented VS:
Initial Vital Signs
Temp Pulse Resp BP Pulse Ox
97.8 F 81 18 110/70 94
12/03/23 12:32 12/03/23 12:32 12/03/23 12:32 12/03/23 12:32 12/03/23 12:32
Last Documented Vital Signs
Temp Pulse Resp BP Pulse Ox
97.8 F 75 15 110/61 100
12/03/23 12:32 12/03/23 17:45 12/03/23 17:45 12/03/23 17:15 12/03/23 17:45
MDM/Problems Addressed
Differential Diagnosis Includes:
covid, pneuonia, chf, infectious diarrhea, side efects augmentin
MDM/Problems Addressed:
68-year-old male coming from home, being cared for by his brother more recently after having hyponatremia last month requiring hospitalization and then rehab who presents for cough and URI symptoms over the last couple of days. He was seen by an
outside hospital and diagnosed with a sinusitis and placed on Augmentin. He almost immediately had vomiting x 1 or 2 and then diarrhea. He is gone total of 3 times today so far. It is not black or bloody. He has not had any abdominal pain. He
continues to have an occasional cough. He went to his family doctor and they thought he had crackles in his lungs and he looked pale as well as dehydrated. On exam the patient does appear slightly pale but not hypoxic, tachypneic. He is afebrile.
His lungs sound crackly and slight wheezy at the bases bilaterally. There is some pitting edema bilateral symmetric in his lower extremities ankle region. He is not having any chest pain or shortness of breath. His EKG is nonischemic. His chest
x-ray was independently reviewed by me and clear, without any focal infiltration. He has albuterol at home for cough.
He does have reassuring blood work showing a normal sodium, bicarb slightly low at 19. He was drinking fluids here. BNP was reassuring as well that this is not heart failure.
Patient was able to provide a stool sample and we sent it for testing. Did not repeat so before he left. But I got him up and walking and he looked well. He felt well enough to go home. I do consider that he has an early pneumonia and that I
probably should continue the antibiotics though Augmentin does not seem to be tolerated well currently. Will change him to doxycycline and azithromycin instead.
There is a question of whether he needs antibiotics at all but based on his lung exam it does sound like he could have an early pneumonia. I did offer him observation admission for fluids and antibiotics but he preferred to go home. He was up and
walking and not having any respiratory distress.
*Critical Care Note
Total Time (30-74mins, 75-104mins- exclusive of procedures): Not Applicable
ED Attending Note
-
Portions of this chart may have been created with voice recognition software.� Occasional wrong word or��sound alike� substitutions may have occurred due to the inherent limitations of voice recognition software.
Discharge Plan
Departure
Patient Disposition: Home (Routine Discharge)
Date of Disposition: 12/03/23
Time of Disposition: 18:12
Patient with high blood pressure during this ER visit?: No
Condition: Fair
Covid-19: Not Applicable
Discharge Problem:
Bronchitis, Diarrhea
Instructions: Diarrhea in teens and adults, Acute Bronchitis, Adult (DC)
Prescriptions:
New
doxycycline hyclate 100 mg tablet
100 mg PO BID Qty: 14 0RF
azithromycin [Zithromax] 250 mg tablet
250 mg PO DAILY Qty: 4 0RF
No Action
albuterol sulfate [Ventolin HFA] 90 mcg/actuation Hfa Aerosol Inhaler
2 puff INHALATION R Q6HPRN PRN (Reason: asthma)
meloxicam 15 mg Tablet
15 mg PO DAILYPRN PRN (Reason: mild pain)
therapeutic multivitamin Tablet
1 tab PO DAILY
temazepam 15 mg Capsule
15 mg PO HS
levothyroxine 125 mcg Tablet
125 mcg PO DAILY@0600 Qty: 90 2RF
melatonin 5 mg Tablet
5 mg PO HSPRN PRN (Reason: Insomnia) Qty: 30 2RF
Referrals:
Anita Hanson DO [Family Provider] - Follow up in 5-7 days
Activity Restrictions/Additional Instructions:
STAY HYDRATED WITH LIQUIDS
STOP THE AUGMENTIN IT IS CAUSING DIARRHEA
YOU HAD NO SIGN OF PNEUMONIA BUT HE SOUNDS LKE HE CLINICALLY HAS PNEUMONIA
THERE IS NO SIGN OF HEART FAILURE
TAKE DOXYCYCLINE 100 MG TWICE A DAY FOR 7 DAYS AND AZITHROMYCIN ONCE A DAY FOR 4 DAYS
USE YOUR INHALER FOR YUOR COUGH
DRINK FLUIDS TO STAY HYDRATED
WE SENT STOOL STUDIES AND YOU WILL BE CALLED IF YOU NEED DIFFERENT ANTIBIOTOICS
RETURN FOR: DEHYDRATION, SHORTNESS OF BREATH, FATIGUE, CONFUSION, HIGH FEVER, ABDOMINAL PAIN OR ANY CONCERNS.
Interventions
Interventions:
*Risk Screen - Suicide Last Done: 12/03/23 12:32
*General Assessment Last Done: 12/03/23 12:32
*Neglect/Abuse Screening Last Done: 12/03/23 13:57
ED- Fall Risk Assessment Last Done: 12/03/23 13:57
*ED COVID-19 Vaccine History Last Done: 12/03/23 12:32
*Nursing Disposition Last Done: 12/03/23 18:34
ED- Cardiac Assessment Last Done: 12/03/23 13:57
ED- Pulmonary Assessment Last Done: 12/03/23 13:57
Discharge Date and Time
Discharge Date/Time: 12/03/23 18:40
Print Language: RUSSIAN
[2023-12-03] MEDS: VIBRAMYCIN 100 MG PO (18:25)
[2023-12-03] MEDS: ZITHROMAX 500 MG PO (18:25)
== END 2023-12-03 18:40 | disposition home or self-care (01) ==
LOC: EMR 12:30
PROVIDERS: Emergency Medicine; Physician Assistant; EMERGENCY PHYSICIAN Student in an Organized Health Care Education/Training Program; FAMILY PHYSICIAN Family Medicine
DX: J40 Bronchitis, not specified as acute or chronic (principal); R19.7 Diarrhea, unspecified; Z11.52 Encounter for screening for COVID-19
CPT/HCPCS: 99285; 71046; 80053; 81003; 83880; 85025; 87045; 87046; 87324; 87427; 87449; 87502; 87811; 93005

== ENCOUNTER → 2023-12-27 16:31 | Outpatient (REF) | payer OTHER, SELFPAY | LOC: HWRAD 16:31 | DX: R09.89 Other specified symptoms and signs involving the circulatory and respiratory systems (principal) | CPT/HCPCS: 71046 ==